=== PATIENT | female | born 1955 | race Caucasian/White ===

== ENCOUNTER 2021-09-11 07:56 | Outpatient (CLI) | payer MEDICARE, SELFPAY ==
--- NOTE | ~2021-09-11 | MM_ITS ---
EXAMINATION: MM screening refugio BI w shi HISTORY: Screening mammogram TECHNIQUE: Craniocaudal and mediolateral oblique 3-D tomosynthesis images were obtained and synthetic 2-D images were generated. CAD analysis was submitted and interpreted. COMPARISON: 01/22/2019 BREAST PARENCHYMAL COMPOSITION: There are scattered areas of fibroglandular density. FINDINGS: There is no suspicious mass, calcification, or architectural distortion to suggest malignan cy in either breast. There has been no suspicious interval change. IMPRESSION: 1. No mammographic evidence of malignancy. 2. Recommend routine screening mammography in one year. BI-RADS Category 1: Negative Reviewed, dictated and finalized at location A.
== END 2021-09-11 07:57 | disposition home or self-care (01) ==
LOC: ANHIMG 07:58
PROVIDERS: PCP Internal Medicine; Visit Provider Obstetrics & Gynecology
DX: Z12.31 Encounter for screening mammogram for malignant neoplasm of breast (principal)
CPT/HCPCS: 77063; 77067

== ENCOUNTER 2022-11-16 08:47 | Outpatient (CLI) | payer MEDICARE, SELFPAY ==
--- NOTE | ~2022-11-16 | MM_ITS ---
EXAMINATION: MM screening refugio BI w shi HISTORY: Screening TECHNIQUE: Craniocaudal and mediolateral oblique 3-D tomosynthesis images were obtained and synthetic 2-D images were generated. CAD analysis was submitted and interpreted. COMPARISON: Comparison to multiple prior studies sequentially, with oldest reviewed study dated 12/30. BREAST PARENCHYMAL COMPOSITION: Breast composed of scattered areas of fibroglandular density FINDINGS: There is a new mass in the lower outer quadrant of the left breast, middle third. The right breast is stable without evidence for malignancy. IMPRESSION: 1. New left breast mass, lower outer quadrant. 2. Additional mammographic views and possible breast ultrasound are recommended. BI-RADS Category 0: Incomplete: Needs additional imaging evaluation. Reviewed, dictated and finalized at location A. IMPRESSION: 1. New left breast mass, lower outer quadrant. 2. Additional mammographic views and possible breast ultrasound are recommended . BI-RADS Category 0: Incomplete: Needs additional imaging evaluation.
== END 2022-11-16 08:48 | disposition home or self-care (01) ==
LOC: ANHIMG 08:48
PROVIDERS: PCP Internal Medicine; Visit Provider Obstetrics & Gynecology
DX: Z12.31 Encounter for screening mammogram for malignant neoplasm of breast (principal)
CPT/HCPCS: 77063; 77067

== ENCOUNTER 2022-11-18 12:40 | Outpatient (CLI) | payer MEDICARE, SELFPAY ==
--- NOTE | ~2022-11-18 | MMUS_ITS ---
EXAMINATION: MM diagnostic refugio LT w shi, US breast LT limited HISTORY: Follow-up left breast mass TECHNIQUE: Additional 3-D tomosynthesis images of the left breast were performed and synthetic 2-D im ages were generated. CAD analysis was submitted and interpreted. High resolution Limited left breast ultrasound was performed. COMPARISON: 11/16/2022 BREAST PARENCHYMAL COMPOSITION: Breast composed of scattered areas of fibroglandular density FINDINGS: MAMMOGRAPHIC FINDINGS: There is a persistent low-density mass in the lower outer quadrant of the left breast posteriorly. Th ere are no suspicious calcifications or architectural distortion. ULTRASOUND: Limited left breast ultrasound: At 4:00, 6 cm from the nipple, there is a 9 mm cyst corresponding to the mass seen on mammography. At 7:00, 5 cm from the nipple, there is a 4 mm oval hypoechoic mass wit h low level internal echoes, most likely a benign complicated cyst, although short-term follow-up is recommended.. IMPRESSION: 1. Probable benign 4 mm left breast mass at 7:00, 5 cm from the nipple. 2. Recommend 6 month follow-up Limited left breast ultrasound BI-RADS category 3, probably benign findings. Reviewed, dictated and finalized at location A. IMPRESSION: 1. Probable benign 4 mm left breast mass at 7:00, 5 cm from the nipple. 2. Recommend 6 month follow-up Limited left breast ultrasound BI-RADS category 3, probably benign findings.
== END 2022-11-18 12:41 | disposition home or self-care (01) ==
PROVIDERS: PCP Internal Medicine; Visit Provider Obstetrics & Gynecology
DX: R92.8 Other abnormal and inconclusive findings on diagnostic imaging of breast (principal)
CPT/HCPCS: 76642; 77061; 77065; G0279

== ENCOUNTER 2023-06-14 10:42 | Outpatient (CLI) | payer MEDICARE, SELFPAY ==
--- NOTE | ~2023-06-14 | US_ITS ---
US breast LT limited INDICATION: Follow-up left breast mass TECHNIQUE: Dedicated Limited left breast ultrasound COMPARISON: 11/18/2022 FINDINGS: At 7:00, 5 cm from the nipple there is a 3 mm simple cyst. No suspicious masses to suggest malignancy. IMPRESSION: 1: No sonographic evidence for malignancy in the left breast. Benign finding. Routine yearly screening mammogram and regular clinical breast examination are recommended. BI-RADS CATEGORY 2 - BENIGN FINDINGS Reviewed, dictated and finalized at location B.
== END 2023-06-14 10:43 | disposition home or self-care (01) ==
PROVIDERS: PCP Internal Medicine; Visit Provider Obstetrics & Gynecology
DX: R92.8 Other abnormal and inconclusive findings on diagnostic imaging of breast (principal); N63.20 Unspecified lump in the left breast, unspecified quadrant
CPT/HCPCS: 76642

== ENCOUNTER 2024-11-14 09:47 | Emergency (ER) | payer MEDICARE, SELFPAY ==
--- OUTSIDE RECORDS SUMMARY | 2005-05-07 04:30 | XMS_ITS | Continuity of Care Document ---
Author Organization [facility] Address [id number] [place] [address] [address] [place] [address] Phone Care Team Providers Care Lockstitch Binder Name Role Phone Andino OD, Kirby Unavailable Unavailable Advance Directives Directive Yes / No Effective Date File Name No Information Encounters Encounter Description Practice Location Reason(s) For Visit Diagnoses Date Provider Providers Copied on Encounter [facility], [address], [place], [place], [id number], [place] tel:[phone] [facility] [place] No Information Mar-1 0-200 6 Andino OD Kirby. [address] [place] , [address], [place], [address], [place]. tel:[phone] Family History Family Member Type Diagnosis Age At Onset No Information Payers Payer name Insurance type Covered alliance party ID Authoriza tion(s) No Information Social History Type Description Quantity Date Captured Comments Sex Female Smoking Status No Information Chief Complaint And Reason For Visit No Information Reason For Referral Reason For Referral No Information History Of Present Illness Encounter Date Complaint History Of Prese nt Illness No Information Functional Status Date Functional Assessmen t No Information Instructions Date Instruction Additional Infor mation No Information Assessments Type Assessment Date No Information Patient Care Teams Name Effective Dates (start - stop) Status Members No Information
[2024-11-14] VITALS (17 sets, daily range): BP systolic 163–170; BP diastolic 82–94; PULSE 95–108; RESP 12–28; TEMP 36.8; O2SAT 91–98
--- NOTE | ~2024-11-14 | CT_ITS ---
CTA CHEST CLINICAL HISTORY: Chest Pain . COMPARISON: None TECHNIQUE: Helical CTA performed from thoracic inlet to upper abdomen IV contrast information not listed in PACS Coronal, sagittal reformats. Multiplanar MIPS CT images acquired with automatic exposure control for dose reduction DLP: 884 mGy-cm FINDINGS: Pulmonary arteries: No PE. Thoracic Aorta: No dissection or aneurysm. Heart/pericardium: Cardiomegaly. RV/LV ratio: Normal. Lungs/Pleura: Right basilar atelectasis from elevated hemidiaphragm. Tracheobronchial tree: Patent. Nodes: No enlarged nodes. Bones: No acute bony abnormality. Soft tissues: Unremarkable. Visualized upper abdomen: Hepatomegaly, with steatosis, suspect early cirrhosis. Cholecystectomy. Right hepatic artery replaced from SMA. IMPRESSION: 1. No PE or other acute cardiopulmonary findings. Reviewed, dictated and finalized at location R.
--- NOTE | 2024-11-14 09:48 | ECG_ITS ---
Test Date: 2024-11-14 10:06:00 Measurements Intervals [place] Rate: 103 P: 12 VT: 138 QRS: -24 QRSD: 90 T: 82 QT: 348 QTc: 457 Interpretive Statements SINUS TACHYCARDIA BORDERLINE LEFT AXIS DEVIATION [QRS AXIS < -20] LEFT VENTRICULAR HYPERTROPHY AND ST-T CHANGE [VOLTAGE CRITERIA PLUS ST/T ABNORMALITY] CONSISTENT WITH HYPERTROPHY VERSUS ISCHEMIA ABNORMAL ECG No previous ECG available for comparison Electronically Signed On 11-14-2024 13:05:43 CDT by Ck Potter M.D.
[2024-11-14 10:14] LABS: Hematocrit 41.0 % (37.0-47.0); Hemoglobin 12.8 g/dL (12.0-15.0); Immature Granulocyte Percent A 0.6 % (0-0.5); Lymphocytes Absolute Auto 2.09 K/mm3 (0.9-3.2); Mean Corpuscular HGB Conc 31.2 g/dl (32-36); Mean Corpuscular Hemoglobin 25.8 pg (26-34); Mean Corpuscular Volume 82.5 fl (80-100); Nucleated Red Blood Cells Absolute Auto 0.000 K/mm3 (0.0-0.012); Nucleated Red Blood Cells Perc 0.0 % (0.0-0.2); Platelet Count Result 315 k/mm3 (150-375); Red Blood Count 4.97 M/mm3 (4.2-5.4); White Blood Count 13.6 K/mm3 (4.5-10.0)
[2024-11-14 10:28] LABS: Alanine Aminotransferase 28 U/L (6-35); Albumin Level 4.5 g/dL (3.5-5.1); Alkaline Phosphatase 96 U/L (38-126); Anion Gap 10 mmol/L (4-12); Aspartate Amino Transferase 25 U/L (14-36); Bilirubin,Total 1.0 mg/dL (0.2-1.3); Blood Urea Nitrogen 11 mg/dL (7-17); Calcium 9.1 mg/dL (8.4-10.2); Carbon Dioxide 27 mmol/L (22-30); Chloride 102 mmol/L (98-107); Estimated CRCL calculation 66 ml/min; Estimated Glomerular Filt Rate > 60; Glucose 153 mg/dL (65-110); INR 1.1; Lipase 82 U/L (23-300); Partial Thromboplastin Time 27.3 Seconds (22.3-36.8); Potassium 3.4 mmol/L (3.4-5.0); Prothrombin Time 14.3 Seconds (11.1-14.7); Sodium 139 mmol/L (137-145); Total Protein 8.6 g/dL (6.3-8.2)
[2024-11-14 10:38] LABS: Troponin I < 0.012 ng/mL (0.000-0.034)
[2024-11-14] MEDS: ASPIRIN 81 MG CHEWABLE TABLET 324 MG PO (11:09)
[2024-11-14] MEDS: MORPHINE SULFATE (*CRX) 4 MG/ML INJ IV PUSH (11:11)
--- NOTE | 2024-11-14 12:37 | ED.CHESTPAIN ---
HPI - Chest Pain General Chief Complaint: Chest Pain Stated Complaint: chest pain Time Seen by Provider: 11/14/24 10:11 History of Present Illness HPI narrative: Patient is a 61-year-old female who presents ER with chest pain. Ongoing since yesterday evening. Persistent. Worse with deep breath. No nausea vomiting. No exertional component. Denies fevers or chills or sweats. No hemoptysis. No leg swelling or cramping. No history of [place]. mild nausea. Related Data Home Medications ?Medication ?Instructions ?Recorded ?Confirmed ?Last Taken ?Type ergocalciferol (vitamin D2) 1,250 1,250 mcg PO WEEKLY 07/30/21 08/20/24 Unknown History mcg (50,000 unit) capsule metformin 500 mg tablet 500 mg PO DAILY 08/16/22 08/20/24 Unknown History atorvastatin 10 mg tablet (Lipitor) 10 mg PO DAILY 08/20/24 08/20/24 Unknown History Allergies Allergy/AdvReac Type Severity Reaction Status Date / Time No Known Allergies Allergy Verified 08/20/24 09:54 Review of Systems Review of Systems: All systems reviewed & are unremarkable except as noted in HPI and below Constitutional: Constitutional: Reports no additional constitutional complaints ENT: Reports system reviewed and no additional complaints, except as documented Cardiovascular: Cardiovascular: Reports no additional cardiovascular complaints Respiratory: Respiratory: Reports no additional respiratory complaints Gastrointestinal: Gastrointestinal: Reports no additional gastrointestinal complaints Genitourinary: Genitourinary: Reports no additional female genitourinary complaints [facility] Past Medical History Medical History Left breast mass History of prediabetes (~2022) rx meds Screening mammogram, encounter for Colostomy hernia 1998 reversal 3 months later Anemia 1993 blood transfusion after c/s Surgical History Surgical History History of bladder surgery bladder sling History of orthopedic surgery 1990 andra in lt leg History of 1988 1993 Family History Family History Father Heart disease Hypertension Osteoporosis Leukemia Mother Lung cancer Uterine cancer Social History Social History (Updated 08/20/24 @ 09:56 by Helga Amato CMA) Smoking status: Never smoker Alcohol intake: never Substance use: never Substance use type: does not use Do You Feel Safe in your Home?: Yes Lack of Transportation: No Lack of Food: Never True Current Housing: I Have Housing Concerned About Future Housing: No Difficulty Paying Gas/Electric Bills: No Difficulty Paying for Meds: No Currently Unemployed: No Education: High School Diploma/GED Difficulty w/ Childcare or Family Care: No Living arrangements: other Additional living arrangements comments: Occupation/Education: retired Gender identity (if verbalized by the patient): Female Sexual Orientation (if Verbalized by the Patient): Straight or Heterosexual Exam Narrative: GENERAL: Well-appearing, well-nourished, and in no acute distress. HEAD: Normocephalic, atraumatic. ENT: Mucous membranes moist. CHEST: Clear to auscultation. No respiratory distress. HEART: Regular rate and rhythm. Normal peripheral pulses. ABDOMEN: Soft, nontender, nondistended. EXTREMITIES: Normal range of motion. No edema. SKIN: Warm, dry, no rash. NEURO: Alert and oriented x3. PSYCH: Normal mood and affect. Course Course Emergency Course: Patient resting comfortably. Pain resolved after fentanyl 25 mcg. Zofran given for nausea. Mild leukocytosis. Normal CMP. CTA of the chest without PE or pneumonia. Troponin negative. Patient felt to have pleurisy. Vital Signs Vital signs: Vital Signs Temperature 98.3 F 11/14/24 09:57 Pulse Rate 99 11/14/24 09:57 Respiratory Rate 20 11/14/24 09:57 Blood Pressure 167/82 H 11/14/24 09:57 Pulse Oximetry 97 11/14/24 09:57 Oxygen Delivery Room Air 11/14/24 09:57 Temperature 98.3 F 11/14/24 09:57 Pulse Rate 102 H 11/14/24 10:01 Respiratory Rate 23 H 11/14/24 10:01 Blood Pressure 167/82 H 11/14/24 10:01 Pulse Oximetry 98 11/14/24 10:01 Oxygen Delivery Room Air 11/14/24 09:57 MDM - Chest Pain Lab Data 11/14/24 10:07 11/14/24 10:07 Labs: Lab Results 11/14/24 Range/Units 10:07 WBC 13.6 H (4.5-10.0) K/mm3 RBC 4.97 (4.2-5.4) M/mm3 Hgb 12.8 (12.0-15.0) g/dL Hct 41.0 (37.0-47.0) % MCV 82.5 (80-100) fl MCH 25.8 L (26-34) pg MCHC 31.2 L (32-36) g/dl RDW 14.6 H (11.5-14.5) % Plt Count 315 (150-375) k/mm3 MPV 9.4 (7.4-10.4) fl Immature Gran % (Auto) 0.6 H (0-0.5) % Neut % (Auto) 76.6 H (45.5-73.1) % Lymph % (Auto) 15.3 L (18.3-44.2) % [place] % (Auto) 6.7 (2.6-8.5) % Eos % (Auto) 0.3 (0-4.4) % Baso % (Auto) 0.5 (0.2-1.2) % Lymph # (Auto) 2.09 (0.9-3.2) K/mm3 [place] # (Auto) 0.9 H (0.1-0.6) K/mm3 Eos # (Auto) 0.0 (0-0.3) K/mm3 Baso # (Auto) 0.1 (0.0-0.1) K/mm3 Abs Immat Gran (auto) 0.08 H (0.00-0.031) K/mm3 Absolute Neuts (auto) 10.5 H (1.3-6.7) K/mm3 Absolute Nucleated RBC 0.000 (0.0-0.012) K/mm3 Nucleated RBC % 0.0 (0.0-0.2) % PT 14.3 (11.1-14.7) Seconds INR 1.1 APTT 27.3 (22.3-36.8) Seconds Sodium 139 (137-145) mmol/L Potassium 3.4 (3.4-5.0) mmol/L Chloride 102 (98-107) mmol/L Carbon Dioxide 27 (22-30) mmol/L Anion Gap 10 (4-12) mmol/L BUN 11 (7-17) mg/dL Creatinine 0.84 (0.7-1.0) mg/dL Estim Creat Clear Calc 66 ml/min Estimated GFR > 60 (59 - ) Glucose 153 H (65-110) mg/dL Calcium 9.1 (8.4-10.2) mg/dL Total Bilirubin 1.0 (0.2-1.3) mg/dL AST 25 (14-36) U/L ALT 28 (6-35) U/L Alkaline Phosphatase 96 (38-126) U/L Troponin I < 0.012 (0.000-0.034) ng/mL Total Protein 8.6 H (6.3-8.2) g/dL Albumin 4.5 (3.5-5.1) g/dL Lipase 82 (23-300) U/L Imaging Data Radiologist's impression: ITS Impressions Chest CTA 11/14/24 10:48 IMPRESSION: 1. No PE or other acute cardiopulmonary findings. ECG Data EKG #1: ECG completion date: 11/14/24 ECG completion time: 10:06 EKG Interpretation: tachycardia (103), sinus rhythm, no ST changes, normal QRS and normal QT Discharge Plan Discharge Clinical Impression: Pleurisy Patient Disposition: Home Condition: Stable Instructions: Pleurisy (ED) Additional Instructions: Please return to the emergency department if you develop severe and persistent chest pain, difficulty breathing, dizziness, leg swelling or if you are coughing up blood as these can be signs of a medical emergency. Please call your doctor for a follow up appointment to determine the need for further testing. Patient Language: Syriac Prescriptions: New pantoprazole 20 mg tablet,delayed release (DR/EC) 20 mg PO HS 28 Days Qty: 28 0RF naproxen 375 mg tablet 375 mg PO BID Qty: 14 0RF No Action metformin 500 mg tablet 500 mg PO DAILY oxybutynin chloride 10 mg tablet extended release 24hr 10 mg PO DAILY Qty: 90 3RF ergocalciferol (vitamin D2) 1,250 mcg (50,000 unit) capsule 1,250 mcg PO WEEKLY atorvastatin [Lipitor] 10 mg tablet 10 mg PO DAILY Follow-up/Referrals: Sebastian,MD Wade [Primary Care Provider] - 1 Week
== END 2024-11-14 13:09 | disposition home or self-care (01) ==
PROVIDERS: Emergency Provider Emergency Medicine; PCP Internal Medicine
DX: R09.1 Pleurisy (principal)
CPT/HCPCS: 36415; 71275; 80053; 83690; 84484; 85025; 85610; 85730; 93005; 96374; 99284; A9270; J2270; Q9967

== ENCOUNTER 2025-01-22 09:49 | Outpatient (CLI) | payer MEDICARE, SELFPAY ==
--- NOTE | ~2025-01-22 | MM_ITS ---
EXAMINATION: MM screening [facility] BI w shi HISTORY: Screening TECHNIQUE: Craniocaudal and mediolateral oblique 3-D tomosynthesis images were obtained and synthetic 2-D images were generated. CAD analysis was submitted and interpreted. COMPARISON: Comparison to multiple prior studies sequentially, with oldest reviewed study dated 09/11/2021. BREAST PARENCHYMAL COMPOSITION: Not dense: There are scattered areas of fibroglandular density. FINDINGS: There are developing bilateral breast masses laterally in the right breast and scattered throughout the left breast. There are no suspicious calcifications or architectural distortion. IMPRESSION: 1. Developing bilateral breast masses. 2. Additional mammographic views and possible breast ultrasound are recommended. BI-RADS Category 0: Incomplete: Needs additional imaging evaluation. Reviewed, dictated and finalized at location O. IAL PROCEDURES NURSE IMPRESSION: 1. Developing bilateral breast masses. 2. Additional mammographic views and possible breast ultrasound are recommended . BI-RADS Category 0: Incomplete: Needs additional imaging evaluation.
== END 2025-01-22 09:50 | disposition home or self-care (01) ==
LOC: ANHFOHIMG 09:50
PROVIDERS: PCP Internal Medicine; Visit Provider Obstetrics & Gynecology
DX: Z12.31 Encounter for screening mammogram for malignant neoplasm of breast (principal); N63.20 Unspecified lump in the left breast, unspecified quadrant; N63.10 Unspecified lump in the right breast, unspecified quadrant; R92.8 Other abnormal and inconclusive findings on diagnostic imaging of breast
CPT/HCPCS: 77063; 77067

== ENCOUNTER 2025-02-13 10:47 | Outpatient (CLI) | payer MEDICARE, SELFPAY ==
--- NOTE | ~2025-02-13 | MM_ITS ---
EXAMINATION: MM diagnostic refugio BI w shi INDICATION: 69-year old female; BI-RADS 0, callback to evaluate Both breasts masses. COMPARISON: 01/22/2025 through 01/22/2019. TECHNIQUE: Digital breast tomosynthesis True lateral view and spot compression CC and MLO views of Both breasts were obtained. FINDINGS: There are scattered areas of fibroglandular density. The masses seen in Both breasts on the screening mammogram partially persists on spot compression views, however this findings are unchanged dating back to the study of 01/22/2019. This findings are therefore considered benign. IMPRESSION: Stable benign mammogram. No mammographic evidence of malignancy in either breast. RECOMMENDATION: Annual screening mammography in 12 months BI-RADS 2, BENIGN Reviewed, dictated and finalized at location A. A/C TECHNICIAN IMPRESSION: Stable benign mammogram. No mammographic evidence of malignancy in either breas t. RECOMMENDATION: Annual screening mammography in 12 months BI-RADS 2, BENIGN
--- OUTSIDE RECORDS SUMMARY | 2025-02-13 12:54 | XMS_ITS | Data Portability ---
Author Organization [place] - [facility], Main Office Address [address] [place] [address] Assessment Encounter Date Assessment Date Assessment LastModified by Organization Details LastModified Time 05/10/2022 05/10/2022 Obtain blood wor k Caloric restriction for weight loss Follow-up 6 months Vitamin-D supplementation [email or web address] Not available 05/15/2022 22:15:57 11/15/2022 11/15/2022 Weight loss watc h sweets continue current therapy Tessalon Perles for week for cough lungs are clear if not improved in a few weeks she will let me know otherwise see me in 6 month [id number] Not available 12/12/2022 14:36:03 Plan of Treatment Reminders Order Date Submit Date Provider Last Modified By Organization Details Last Modified Time Details Appointments None recorded. Lab CBC w/ auto diff [address] (Lab), [address] [place], [address], 3 16:52:12 lipid panel, serum [address] (Lab), [address] [place], [address], 3 16:52:12 CMP, serum or plasma [address] (Lab), [address] [place], [address], 3 16:52:12 glycohemogl obin, total, blood [address] (Lab), [address] [place], [address], 3 16:52:12 glycohemogl obin, total, blood 2022 023 NATASHA [facility] (Lab), [address] [place], [address], 3 17:12:50 lipid panel, serum [address] (Lab), [address] [place], [address], 3 15:59:08 CMP, serum or plasma [address] (Lab), [address] [place], [address], 3 15:59:08 Referral None recorded. Procedures None recorded. Surgeries None recorded. Imaging None recorded. Medication Orders benzonatate 200 mg capsule [address]/Pharmacy #[id number], [address] [facility] [place], [address], 3 14:34:10 ergocalcife rol (vitamin D2) 1,250 mcg (50,000 unit) capsule [address]/Pharmacy #[id number], [address] , [place], [address], 3 22:14:34 Patient TargetsNo targets recorded. Patient InstructionsNo instructions recorded. Reason for Referral None Reported. Results Created Date Observation Date Name Description Value Unit Range Abnormal Flag Note LastModifiedBy Organization Detail LastModifiedTime 09/03/19 21 09/04/2020 AP/A NTINU CLEAR ANTIB ODIES ,IFA antinuclear antibodies, ifa negati ve Negat deep <1:80 Borde rline 1:80 Posit deep >1:80 Perfo rmed at: [facility] - [facility] [address] [facility], [place] [address] Lab Direc tor: Deshaun ambriz PhD, Phone : [phone] Not Available [facility] (Lab) [address] [place], [address], 09/04/2020 09:13:32 09/03/19 21 09/02/2020 C REACT DEEP PROTE IN,UL TRA SENS C-reactive protein 1.66 mg/dL 0.0-0. 5 high Not Available [facility] (Lab) [address] [place], [address], 09/02/2020 16:43:52 09/03/19 21 09/02/2020 RHEUM ATOID FACTO R rf <8.6 IU/mL 0.0-11 .9 Not Available [facility] (Lab) [address] [place], [address], 09/02/2020 16:43:49 09/03/19 21 09/02/2020 TSH thyroid-stim ulating hormone 1.160 uIU/m L 0.465- 4.680 Not Available [facility] (Lab) [address] [place], [address], 09/02/2020 16:28:47 09/03/19 21 09/02/2020 T3 FREE free T3 3.6 pg/mL 2.77-5 .27 Not Available [facility] (Lab) [address] [place], [address], 09/02/2020 16:21:11 09/03/19 21 09/02/2020 T4 FREE free T4 1.19 NG/dL 0.78-2 .19 Not Available [facility] (Lab) [address] [place], [address], 09/02/2020 16:21:09 09/03/19 21 09/02/2020 LIPID PANEL cholesterol 213 mg/dL 140-19 9 high NIH CHRISTIANO NSUS RECOM MENDA TION FOR JOSH STERO L: ADULT CHILD LOW RISK: <200 <170 BORDE RLINE : <200- 239 ----- HIGH RISK: >240 >200 Not Available [facility] (Lab) [address] [place], [address], 09/02/2020 15:50:52 09/03/19 21 09/02/2020 LIPID PANEL triglyceride s 212 mg/dL 0-150 high NIH CHRISTIANO NSUS REPOR T RECOM MENDA TION FOR TRIGL YCERI NAKUL: ADULT CHILD LOW RISK: <150 ----- BODER LINE: 150-1 99 ----- HIGH RISK: >200 ----- Not Available [facility] (Lab) [address] [place], [address], 09/02/2020 15:50:52 09/03/19 21 09/02/2020 LIPID PANEL HDL cholesterol 51 mg/dL 40- Not Available [facility] (Lab) [address] [place], [address], 09/02/2020 15:50:52 09/03/19 21 09/02/2020 LIPID PANEL LDL cholesterol, calculated 120 mg/dL 0-130 NIH CHRISTIANO NSUS REPOR T RECOM MENDA TIONS FOR LDL: ADULT CHILD LOW RISK <130 <110 (OPTI MAL LDL) <100 ----- BORDE RLINE : 130-1 59 ----- HIGH RISK: >160 >130 A TRIGL YCERI DE RESUL T >400 INVAL IDATE S THE CALCU LATIO N FOR LDL FRACT IONAT ION - THE LDL RESUL T WILL NOT BE REPOR JETHRO. Not Available [facility] (Lab) [address] [place], [address], 09/02/2020 15:50:52 09/03/19 21 09/02/2020 COMPR EHENS DEEP METAB OLIC PANEL sodium 139 mmol/ L 137-14 5 Not Available [facility] (Lab) [address] [place], [address], 09/02/2020 15:50:46 09/03/19 21 09/02/2020 COMPR EHENS DEEP METAB OLIC PANEL potassium 4.1 mmol/ L 3.5-5. 1 Not Available [facility] (Lab) [address] [facility] [place], [address], 09/02/2020 15:50:46 09/03/19 21 09/02/2020 COMPR EHENS DEEP METAB OLIC PANEL chloride 102 mmol/ L 98-107 Not Available [facility] (Lab) [address] [facility] [place], [address], 09/02/2020 15:50:46 09/03/19 21 09/02/2020 COMPR EHENS DEEP METAB OLIC PANEL carbon dioxide 30 mmol/ L 22-30 Not Available [facility] (Lab) [address] [place], [address], 09/02/2020 15:50:46 09/03/19 21 09/02/2020 COMPR EHENS DEEP METAB OLIC PANEL agap 11.1 mmol/ L 14-22 low Not Available [facility] (Lab) [address] [place], [address], 09/02/2020 15:50:46 09/03/19 21 09/02/2020 COMPR EHENS DEEP METAB OLIC PANEL glucose 164 mg/dL 70-99 high Not Available [facility] (Lab) [address] [facility] [place], [address], 09/02/2020 15:50:46 09/03/19 21 09/02/2020 COMPR EHENS DEEP METAB OLIC PANEL BUN 10 mg/dL 8-19 Not Available [facility] (Lab) [address] [place], [address], 09/02/2020 15:50:46 09/03/19 21 09/02/2020 COMPR EHENS DEEP METAB OLIC PANEL creatinine 0.67 mg/dL 0.66-1 .25 Not Available [facility] (Lab) [address] [place], [address], 09/02/2020 15:50:46 09/03/19 21 09/02/2020 COMPR EHENS DEEP METAB OLIC PANEL GFR >60 Refer ence Range : [place] ge GFR Healt hy Adult : >60 mL/mi n/1.7 3 m2 Chron ic Kidne y Disea se: 15-60 mL/mi n/1.7 3 m2 Kidne y Failu re: <15/m L/min /1.73 m2 www.n iddk. nih.g ov MDRD study equat ion hasn' t been valid ated in child junior <18 yrs of age, pregn ant women , the elder ly >85 yrs of age, or in some racia l or ethni c subgr oups, suc as Hispa nics. Outsi de the valid ated sona eters , estim ated GFR is less accur ate requi ring clini rita judgm ent on a case by case basis . Clini rita inter preta tion for other races and ages must be made by the clini zully . Futhe rmore , any of th e limit ation s with the use of serum creat inine relat ed to nutri yuval l statu s o r medic ation usage hasn' t accou nted for the MDRD Study equat ion. For perso ns < 18 yrs of age, a pedia tric GFR calcu lator can be locat ed on the [facility] websi te: https ://jose w.kid suresh.o rg/pr ofess ional s/kdo qi/gf r_cal culat or Not Available [facility] (Lab) [address] [place], [address], 09/02/2020 15:50:46 09/03/19 21 09/02/2020 COMPR EHENS DEEP METAB OLIC PANEL alkaline phosphatase 92 U/L 38-126 Not Available [facility] (Lab) [address] [facility] [place], [address], 09/02/2020 15:50:46 09/03/19 21 09/02/2020 COMPR EHENS DEEP METAB OLIC PANEL alanine aminotransfe rase 25 U/L 0-35 Not Available [facility] (Lab) [address] [place], [address], 09/02/2020 15:50:46 09/03/19 21 09/02/2020 COMPR EHENS DEEP METAB OLIC PANEL aspartate aminotransfe rase 24 U/L 15-37 Not Available [facility] (Lab) [address] [facility] [place], [address], 09/02/2020 15:50:46 09/03/19 21 09/02/2020 COMPR EHENS DEEP METAB OLIC PANEL bilirubin, total 0.50 mg/dL 0.20-1 .30 Not Available [facility] (Lab) [address] [place], [address], 09/02/2020 15:50:46 09/03/19 21 09/02/2020 COMPR EHENS DEEP METAB OLIC PANEL calcium 8.8 mg/dL 8.4-10 .2 Not Available [facility] (Lab) [address] [place], [address], 09/02/2020 15:50:46 09/03/19 21 09/02/2020 COMPR EHENS DEEP METAB OLIC PANEL total protein 7.1 g/dL 6.3-8. 2 Not Available [facility] (Lab) [address] [place], [address], 09/02/2020 15:50:46 09/03/19 21 09/02/2020 COMPR EHENS DEEP METAB OLIC PANEL albumin 4.1 g/dL 3.0-4. 4 Not Available [facility] (Lab) [address] [place], [address], 09/02/2020 15:50:46 09/03/19 21 09/02/2020 COMPR EHENS DEEP METAB OLIC PANEL globulin 3.0 g/dL 2.6-4. 2 Not Available [facility] (Lab) [address] [place], [address], 09/02/2020 15:50:46 09/03/19 21 09/02/2020 COMPR EHENS DEEP METAB OLIC PANEL A/G ratio 1.4 ratio 1.0-2. 0 Not Available [facility] (Lab) [address] [place], [address], 09/02/2020 15:50:46 09/03/19 21 09/02/2020 SEDIM ENTAT ION RATE erythrocyte sedimentatio n rate 45 mm/HR 0-20 high Not Available [facility] (Lab) [address] [place], [address], 09/02/2020 15:45:23 09/03/19 21 09/02/2020 URINE MICRO SCOPI C EXAM/ IRIS white blood cells >100 /i??h pfi?? 0-8 abnormal Not Available [facility] (Lab) [address] [place], [address], 09/02/2020 15:42:09 09/03/19 21 09/02/2020 URINE MICRO SCOPI C EXAM/ IRIS red blood cells none /i??h pfi?? 0-4 Not Available [facility] (Lab) [address] [place], [address], 09/02/2020 15:42:09 09/03/19 21 09/02/2020 URINE MICRO SCOPI C EXAM/ IRIS bacteria modera te abnormal Not Available [facility] (Lab) [address] [place], [address], 09/02/2020 15:42:09 09/03/19 21 09/02/2020 URINE MICRO SCOPI C EXAM/ IRIS mucous occasi onal /i??l pfi?? abnormal Not Available [facility] (Lab) [address] [place], [address], 09/02/2020 15:42:09 09/03/19 21 09/02/2020 URINE MICRO SCOPI C EXAM/ IRIS squamous epithelial few /i??l pfi?? abnormal Not Available [facility] (Lab) [address] [place], [address], 09/02/2020 15:42:09 09/03/19 21 09/02/2020 URINE MICRO SCOPI C EXAM/ IRIS renal epithelial few /i??l pfi?? abnormal Not Available [facility] (Lab) [address] [place], [address], 09/02/2020 15:42:09 09/03/19 21 09/02/2020 URINE MICRO SCOPI C EXAM/ IRIS budding yeast few /i??h pfi?? abnormal Not Available [facility] (Lab) [address] [place], [address], 09/02/2020 15:42:09 09/03/19 21 09/02/2020 CBC/C OMPLE TE BLD COUNT W/DIF F white blood cells 8.4 x10'3 /uL 4.2-10 .8 Not Available [facility] (Lab) [address] [place], [address], 09/02/2020 15:14:33 09/03/19 21 09/02/2020 CBC/C OMPLE TE BLD COUNT W/DIF F red blood cells 4.80 x10'6 /uL 3.80-5 .20 Not Available [facility] (Lab) [address] [place], [address], 09/02/2020 15:14:33 09/03/19 21 09/02/2020 CBC/C OMPLE TE BLD COUNT W/DIF F hemoglobin 12.4 g/dL 12.0-1 5.6 Not Available [facility] (Lab) [address] [place], [address], 09/02/2020 15:14:33 09/03/19 21 09/02/2020 CBC/C OMPLE TE BLD COUNT W/DIF F hematocrit 39.7 % 35.7-4 5.7 Not Available [facility] (Lab) [address] [place], [address], 09/02/2020 15:14:33 09/03/19 21 09/02/2020 CBC/C OMPLE TE BLD COUNT W/DIF F mean red cell volume 82.7 fL 82.0-9 9.0 Not Available [facility] (Lab) [address] [place], [address], 09/02/2020 15:14:33 09/03/19 21 09/02/2020 CBC/C OMPLE TE BLD COUNT W/DIF F mean red cell hemoglobin 25.8 pg 27.0-3 3.0 low Not Available [facility] (Lab) [address] [place], [address], 09/02/2020 15:14:33 09/03/19 21 09/02/2020 CBC/C OMPLE TE BLD COUNT W/DIF F mean RBC HGB concentratio n 31.2 g/dL 31.0-3 6.0 Not Available [facility] (Lab) [address] [place], [address], 09/02/2020 15:14:33 09/03/19 21 09/02/2020 CBC/C OMPLE TE BLD COUNT W/DIF F red cell distribution width 14.1 % 11.8-1 5.5 Not Available [facility] (Lab) [address] [place], [address], 09/02/2020 15:14:33 09/03/19 21 09/02/2020 CBC/C OMPLE TE BLD COUNT W/DIF F platelets 292 x10'3 /uL 150-40 0 Not Available [facility] (Lab) [address] [facility] [place], [address], 09/02/2020 15:14:33 09/03/19 21 09/02/2020 CBC/C OMPLE TE BLD COUNT W/DIF F mean platelet volume 10.0 fL 9.0-12 .4 Not Available [facility] (Lab) [address] [place], [address], 09/02/2020 15:14:33 09/03/19 21 09/02/2020 CBC/C OMPLE TE BLD COUNT W/DIF F neutrophils 63.6 % 39.0-7 2.0 Not Available [facility] (Lab) [address] [place], [address], 09/02/2020 15:14:33 09/03/19 21 09/02/2020 CBC/C OMPLE TE BLD COUNT W/DIF F lymphocytes 29.3 % 16.0-4 7.0 Not Available [facility] (Lab) [address] [place], [address], 09/02/2020 15:14:33 09/03/19 21 09/02/2020 CBC/C OMPLE TE BLD COUNT W/DIF F monocytes 3.8 % 5.0-12 .0 low Not Available [facility] (Lab) [address] [place], [address], 09/02/2020 15:14:33 09/03/19 21 09/02/2020 CBC/C OMPLE TE BLD COUNT W/DIF F eosinophils 2.1 % 1.0-7. 0 Not Available [facility] (Lab) [address] [place], [address], 09/02/2020 15:14:33 09/03/19 21 09/02/2020 CBC/C OMPLE TE BLD COUNT W/DIF F basophils 0.6 % 0.0-2. 0 Not Available [facility] (Lab) [address] [place], [address], 09/02/2020 15:14:33 09/03/19 21 09/02/2020 CBC/C OMPLE TE BLD COUNT W/DIF F immature granulocytes 0.6 % 0.00-0 .50 high Not Available [facility] (Lab) [address] [place], [address], 09/02/2020 15:14:33 09/03/19 21 09/02/2020 CBC/C OMPLE TE BLD COUNT W/DIF F neutrophils, absolute count 5.35 x10'3 /uL 1.5-8. 0 Not Available [facility] (Lab) [address] [place], [address], 09/02/2020 15:14:33 09/03/19 21 09/02/2020 CBC/C OMPLE TE BLD COUNT W/DIF F lymphocytes, absolute count 2.46 x10'3 /uL 1.07-3 .43 Not Available [facility] (Lab) [address] [place], [address], 09/02/2020 15:14:33 09/03/19 21 09/02/2020 CBC/C OMPLE TE BLD COUNT W/DIF F monocytes, absolute count 0.32 x10'3 /uL 0.29-0 .99 Not Available [facility] (Lab) [address] [place], [address], 09/02/2020 15:14:33 09/03/19 21 09/02/2020 CBC/C OMPLE TE BLD COUNT W/DIF F eosinophils, absolute count 0.18 x10'3 /uL 0.02-0 .53 Not Available [facility] (Lab) [address] [place], [address], 09/02/2020 15:14:33 09/03/19 21 09/02/2020 CBC/C OMPLE TE BLD COUNT W/DIF F basophils, absolute count 0.05 x10'3 /uL 0.01-0 .08 Not Available [facility] (Lab) [address] [place], [address], 09/02/2020 15:14:33 09/03/19 21 09/02/2020 CBC/C OMPLE TE BLD COUNT W/DIF F immature granulocytes ,absolute 0.05 x10'3 /uL 0.00-0 .05 Not Available [facility] (Lab) [address] [place], [address], 09/02/2020 15:14:33 09/03/19 21 09/02/2020 CBC/C OMPLE TE BLD COUNT W/DIF F nucleated red blood cells 0.0 % -0 Not Available [facility] (Lab) [address] [place], [address], 09/02/2020 15:14:33 09/03/19 21 09/02/2020 CBC/C OMPLE TE BLD COUNT W/DIF F NRBC# 0.00 x10'3 /uL Not Available [facility] (Lab) [address] [place], [address], 09/02/2020 15:14:33 09/13/19 21 09/12/2020 SARS- COV-2 (COVI D-19) ANTIG EN sars-cov-2 (covid-19) antigen non-re active non-re active This test has been autho rized by the FDA under an Emerg ency Use Autho rizat ion (EUA) for use by autho rized labor atori es. This test is only for the detec tion of SARS- CoV-2 antig en, not for any other virus es or patho gens. Negat deep resul ts from patie nts with sympt om onset outsi de of one to six days shoul d be treat ed as presu mptiv e. Negat deep resul ts do not rule out SARS- CoV-2 infec tion and shoul d not be used as the sole basis of treat ment or patie nt manag ement decis ions, inclu ding infec tion contr ol decis ions. Negat deep resul ts shoul d be consi dered in the caprcie xt of a patie nt's recen t expos ures, histo ry and the prese nce of clini rita signs and sympt oms consi stent with COVID -19. The VITRO S Immun odiag nosti cs Produ cts SARS- CoV-2 Antig en Lette r of Autho rizat ion, along with the autho rized Fact Sheet for Healt hcare Provi ders, the autho rized Fact Sheet for Recip ients , and autho rized label ing are avail able on the FDA Websi te: https ://ww w.fda .gov/ medic al-de vices /latoya navir us-di sease -2019 -covi d-19- emerg ency- use-a uthor izati ons-m edica l-dev ices/ vitro -diag nosti cs-eu as# indiv idual -sero logic al Not Available [facility] (Lab) [address] [place], [address], 09/12/2020 18:14:55 09/13/19 21 09/12/2020 SARS- COV-2 (COVI D-19) ANTIG EN signal to cutoff ratio 0.25 0.00-0 .99 Not Available [facility] (Lab) [address] [place], [address], 09/12/2020 18:14:55 09/17/19 21 09/16/2020 COLOG UARD cologuard result reportable positi ve negati ve abnormal POSIT DEEP TEST RESUL T. A posit deep Colog uard resul t shoul d be follo wed with a colon oscop y or visua l exami natio n of the colon . The casa l value (refe rence range ) for this assay is negat deep. TEST DESCR IPTIO N: [place] site algor ithmi c treva sis of stool DNA-b soni barrios with hemog lobin immun oassa y. Quant itati ve value s of indiv idual bioma rkers are not repor table and are not assoc iated with indiv idual bioma rker resul t refer ence range s. Colog uard is inten ded for color ectal cance r scree [place] of adult s of eithe r sex, 45 years or older , who are at [facility] for color ectal cance r (CRC) . Colog uard has been appro erika for use by the [place] FDA. The perfo rmanc e of Colog uard was estab lishe d in a cross secti onal study of [facility] adult s aged 50-84 . Colog uard perfo rmanc e in patie nts ages 45 to 49 years was estim ated by sub-g roup treva sis of near- age group s. Colon oscop ies perfo rmed for a posit deep resul t may find as the most clini shalini signi ficryan t lesio n: color ectal cance r [4.0% ], advan melody adeno ma (incl uding sessi le kumar jethro polyp s great er than or equal to 1cm diame ter) [20%] or non- advan melody adeno ma [31%] ; or no color ectal neopl chanelle [45%] . These estim ates are deriv ed from a prosp ectiv e cross -sect ional scree [place] study of ,00 0 indiv idual s at [facility] risk for color ectal cance r who were scree [place] with both Colog uard and colon oscop y. (Russel [place] al, N Engl J Med 2014; 370(1 4):12 86-12 97.) Colog uard may produ ce a false negat deep or false posit deep resul t (no color ectal cance r or preca ncero us polyp prese nt at colon oscop y follo w up). A negat deep Colog uard test resul t does not guara ntee the absen ce of CRC or advan melody adeno ma (pre- cance r). The curre nt Colog uard scree [place] inter thaddeus is every 3 years . (Amjorge a ican Cance r Socie ty and U.S. Multi -Soci ety Task Force ). Colog uard perfo rmanc e data in a 10,00 0 patie nt pivot al study using colon oscop y as the refer ence metho d can be acces sed at the follo wing locat ion: www.e xactl abs.c om/re sults . Addit ional descr iptio n of the Colog uard test proce ss, warni ngs and preca ution s can be found at www.c ologu ethan.c om. Not Available [facility] [address], [place], [address], 09/21/2020 09:32:18 11/22/19 21 11/21/2020 VITAM IN D 25-HY DROXY vd25oh 17.1 NG/mL 30-100 low Vitam in D Statu s: Defic ient: <20 ng/mL Insuf ficie nt: 20-29 ng/mL Suffi cient : 30-10 0 ng/mL Not Available [facility] (Lab) [address] [place], [address], 11/21/2020 17:54:01 07/04/19 22 07/03/2021 TSH thyroid-stim ulating hormone 1.330 uIU/m L 0.465- 4.680 Not Available [facility] (Lab) [address] [place], [address], 07/03/2021 15:31:46 07/04/19 22 07/03/2021 HEMOG LOBIN A1C HA1C 6.1 % 4.0-6. 0 high Diabe sara Scree [place] Crite mel: <5.7% Consi stent with absen ce of diabe sara 5.7-6 .4% Consi stent with incre ased risk for diabe sara (pred iabet es) >OR=6 .5% Consi stent with diabe sara REFER ENCE: Diabe sara Care 2016, 39(Ro ppl.1 ):s13 -s22 Not Available [facility] (Lab) [address] [place], [address], 07/03/2021 15:01:52 07/04/19 22 07/03/2021 T3 FREE free T3 3.7 pg/mL 2.77-5 .27 Not Available [facility] (Lab) [address] [place], [address], 07/03/2021 14:57:53 07/04/19 22 07/03/2021 T4 FREE free T4 1.45 NG/dL 0.78-2 .19 Not Available [facility] (Lab) [address] [place], [address], 07/03/2021 14:57:48 07/04/19 22 07/03/2021 COMPR EHENS DEEP METAB OLIC PANEL sodium 138 mmol/ L 137-14 5 Not Available [facility] (Lab) [address] [place], [address], 07/03/2021 14:46:25 07/04/19 22 07/03/2021 COMPR EHENS DEEP METAB OLIC PANEL potassium 4.1 mmol/ L 3.5-5. 1 Not Available [facility] (Lab) [address] [place], [address], 07/03/2021 14:46:25 07/04/19 22 07/03/2021 COMPR EHENS DEEP METAB OLIC PANEL chloride 104 mmol/ L 98-107 Not Available [facility] (Lab) [address] [place], [address], 07/03/2021 14:46:25 07/04/19 22 07/03/2021 COMPR EHENS DEEP METAB OLIC PANEL carbon dioxide 28 mmol/ L 22-30 Not Available [facility] (Lab) [address] [place], [address], 07/03/2021 14:46:25 07/04/19 22 07/03/2021 COMPR EHENS DEEP METAB OLIC PANEL anion gap 10.1 mmol/ L 14-22 low Not Available [facility] (Lab) [address] [place], [address], 07/03/2021 14:46:25 07/04/19 22 07/03/2021 COMPR EHENS DEEP METAB OLIC PANEL glucose 124 mg/dL 70-99 high Not Available [facility] (Lab) [address] [place], [address], 07/03/2021 14:46:25 07/04/19 22 07/03/2021 COMPR EHENS DEEP METAB OLIC PANEL BUN 14 mg/dL 8-19 Not Available [facility] (Lab) [address] [place], [address], 07/03/2021 14:46:25 07/04/19 22 07/03/2021 COMPR EHENS DEEP METAB OLIC PANEL creatinine 0.82 mg/dL 0.66-1 .25 Not Available [facility] (Lab) [address] [place], [address], 07/03/2021 14:46:25 07/04/19 22 07/03/2021 COMPR EHENS DEEP METAB OLIC PANEL GFR >60 Refer ence Range : [place] GFR Healt hy Adult : >60 mL/mi n/1.7 3 m2 Chron ic Kidne y Disea se: 15-60 mL/mi n/1.7 3 m2 Kidne y Failu re: <15/m L/min /1.73 m2 [email or web address] The MDRD study equat ion has not been valid ated in child junior <18 years of age; pregn ant women ; the elder ly >85 years of age; or in some racia l or ethni c subgr oups, such as Hispa nics. Outsi de the valid ated sona eters , estim ated GFR is less accur ate, requi ring clini rita judgm ent on a case- by-ca se basis . Clini rita inter preta tion for other races and ages must be made by the clini zully. The MDRD study equat ion has not been valid ated for the evalu ation of serum creat inine relat ed to nutri yuval l statu s or medic ation usage . For perso ns <18 years of age, a pedia tric GFR calcu lator is avail able on the [facility] websi te: [email or web address] :[email or web address] [email or web address] culat or Not Available [facility] (Lab) [address] [place], [address], 07/03/2021 14:46:25 07/04/19 22 07/03/2021 COMPR EHENS DEEP METAB OLIC PANEL alkaline phosphatase 99 U/L 38-126 Not Available [facility] (Lab) [address] [place], [address], 07/03/2021 14:46:25 07/04/19 22 07/03/2021 COMPR EHENS DEEP METAB OLIC PANEL alanine aminotransfe rase 22 U/L 0-35 Not Available [facility] (Lab) [address] [place], [address], 07/03/2021 14:46:25 07/04/19 22 07/03/2021 COMPR EHENS DEEP METAB OLIC PANEL aspartate aminotransfe rase 21 U/L 15-37 Not Available [facility] (Lab) [address] [place], [address], 07/03/2021 14:46:25 07/04/19 22 07/03/2021 COMPR EHENS DEEP METAB OLIC PANEL bilirubin, total 0.40 mg/dL 0.20-1 .30 Not Available [facility] (Lab) [address] [place], [address], 07/03/2021 14:46:25 07/04/19 22 07/03/2021 COMPR EHENS DEEP METAB OLIC PANEL calcium 9.2 mg/dL 8.4-10 .2 Not Available [facility] (Lab) [address] [place], [address], 07/03/2021 14:46:25 07/04/19 22 07/03/2021 COMPR EHENS DEEP METAB OLIC PANEL total protein 7.6 g/dL 6.3-8. 2 Not Available [facility] (Lab) [address] [place], [address], 07/03/2021 14:46:25 07/04/19 22 07/03/2021 COMPR EHENS DEEP METAB OLIC PANEL albumin 4.2 g/dL 3.0-4. 4 Not Available [facility] (Lab) [address] [place], [address], 07/03/2021 14:46:25 07/04/19 22 07/03/2021 COMPR EHENS DEEP METAB OLIC PANEL globulin 3.4 g/dL 2.6-4. 2 Not Available [facility] (Lab) [address] [place], [address], 07/03/2021 14:46:25 07/04/19 22 07/03/2021 COMPR EHENS DEEP METAB OLIC PANEL A/G ratio 1.2 ratio 1.0-2. 0 Not Available [facility] (Lab) [address] [place], [address], 07/03/2021 14:46:25 07/04/19 22 07/03/2021 LIPID PANEL cholesterol 210 mg/dL 140-19 9 high [facility] NSUS RECOM MENDA TION FOR JOSH STERO L: ADULT CHILD LOW RISK: <200 <170 BORDE RLINE : <200- 239 ----- HIGH RISK: >240 >200 Not Available [facility] (Lab) [address] [place], [address], 07/03/2021 14:46:18 07/04/19 22 07/03/2021 LIPID PANEL triglyceride s 120 mg/dL 0-150 [facility] NSUS REPOR T RECOM MENDA TION FOR TRIGL YCERI NAKUL: ADULT CHILD LOW RISK: <150 ----- BODER LINE: 150-1 99 ----- HIGH RISK: >200 ----- Not Available [facility] (Lab) [address] [place], [address], 07/03/2021 14:46:18 07/04/19 22 07/03/2021 LIPID PANEL HDL cholesterol 52 mg/dL 40- Not Available [facility] (Lab) [address] [place], [address], 07/03/2021 14:46:18 07/04/19 22 07/03/2021 LIPID PANEL LDL cholesterol, calculated 134 mg/dL 0-130 high [facility] NSUS REPOR T RECOM MENDA TIONS FOR LDL: ADULT CHILD LOW RISK <130 <110 (OPTI MAL LDL) <100 ----- BORDE RLINE : 130-1 59 ----- HIGH RISK: >160 >130 A TRIGL YCERI DE RESUL T >400 INVAL IDATE S THE CALCU LATIO N FOR LDL FRACT IONAT ION - THE LDL RESUL T WILL NOT BE REPOR JETHRO. Not Available [facility] (Lab) [address] [place], [address], 07/03/2021 14:46:18 07/04/1907/03/2021 CBC/C OMPLE TE BLD COUNT W/DIF F white blood cells 8.5 x10'3 /uL 4.2-10 .8 Not Available [facility] (Lab) [address] [place], [address], 07/03/2021 14:16:07 07/04/19 22 07/03/2021 CBC/C OMPLE TE BLD COUNT W/DIF F red blood cells 5.09 x10'6 /uL 3.80-5 .20 Not Available [facility] (Lab) [address] [place], [address], 07/03/2021 14:16:07 07/04/19 22 07/03/2021 CBC/C OMPLE TE BLD COUNT W/DIF F hemoglobin 13.4 g/dL 12.0-1 5.6 Not Available [facility] (Lab) [address] [place], [address], 07/03/2021 14:16:07 07/04/19 22 07/03/2021 CBC/C OMPLE TE BLD COUNT W/DIF F hematocrit 42.5 % 35.7-4 5.7 Not Available [facility] (Lab) [address] [place], [address], 07/03/2021 14:16:07 07/04/19 22 07/03/2021 CBC/C OMPLE TE BLD COUNT W/DIF F mean red cell volume 83.5 fL 82.0-9 9.0 Not Available [facility] (Lab) [address] [place], [address], 07/03/2021 14:16:07 07/04/19 22 07/03/2021 CBC/C OMPLE TE BLD COUNT W/DIF F mean red cell hemoglobin 26.3 pg 27.0-3 3.0 low Not Available [facility] (Lab) [address] [place], [address], 07/03/2021 14:16:07 07/04/19 22 07/03/2021 CBC/C OMPLE TE BLD COUNT W/DIF F mean RBC HGB concentratio n 31.5 g/dL 31.0-3 6.0 Not Available [facility] (Lab) [address] [place], [address], 07/03/2021 14:16:07 07/04/19 22 07/03/2021 CBC/C OMPLE TE BLD COUNT W/DIF F red cell distribution width 14.0 % 11.8-1 5.5 Not Available [facility] (Lab) [address] [place], [address], 07/03/2021 14:16:07 07/04/19 22 07/03/2021 CBC/C OMPLE TE BLD COUNT W/DIF F platelets 346 x10'3 /uL 150-40 0 Not Available [facility] (Lab) [address] [place], [address], 07/03/2021 14:16:07 07/04/19 22 07/03/2021 CBC/C OMPLE TE BLD COUNT W/DIF F mean platelet volume 9.8 fL 9.0-12 .4 Not Available [facility] (Lab) [address] [place], [address], 07/03/2021 14:16:07 07/04/19 22 07/03/2021 CBC/C OMPLE TE BLD COUNT W/DIF F neutrophils 63.3 % 39.0-7 2.0 Not Available [facility] (Lab) [address] [place], [address], 07/03/2021 14:16:07 07/04/19 22 07/03/2021 CBC/C OMPLE TE BLD COUNT W/DIF F lymphocytes 28.2 % 16.0-4 7.0 Not Available [facility] (Lab) [address] [place], [address], 07/03/2021 14:16:07 07/04/19 22 07/03/2021 CBC/C OMPLE TE BLD COUNT W/DIF F monocytes 5.4 % 5.0-12 .0 Not Available [facility] (Lab) [address] [place], [address], 07/03/2021 14:16:07 07/04/19 22 07/03/2021 CBC/C OMPLE TE BLD COUNT W/DIF F eosinophils 1.6 % 1.0-7. 0 Not Available [facility] (Lab) [address] [place], [address], 07/03/2021 14:16:07 07/04/19 22 07/03/2021 CBC/C OMPLE TE BLD COUNT W/DIF F basophils 0.8 % 0.0-2. 0 Not Available [facility] (Lab) [address] [place], [address], 07/03/2021 14:16:07 07/04/19 22 07/03/2021 CBC/C OMPLE TE BLD COUNT W/DIF F immature granulocytes 0.7 % 0.00-0 .50 high Not Available [facility] (Lab) [address] [place], [address], 07/03/2021 14:16:07 07/04/19 22 07/03/2021 CBC/C OMPLE TE BLD COUNT W/DIF F neutrophils, absolute count 5.37 x10'3 /uL 1.5-8. 0 Not Available [facility] (Lab) [address] [place], [address], 07/03/2021 14:16:07 07/04/19 22 07/03/2021 CBC/C OMPLE TE BLD COUNT W/DIF F lymphocytes, absolute count 2.39 x10'3 /uL 1.07-3 .43 Not Available [facility] (Lab) [address] [place], [address], 07/03/2021 14:16:07 07/04/19 22 07/03/2021 CBC/C OMPLE TE BLD COUNT W/DIF F monocytes, absolute count 0.46 x10'3 /uL 0.29-0 .99 Not Available [facility] (Lab) [address] [place], [address], 07/03/2021 14:16:07 07/04/19 22 07/03/2021 CBC/C OMPLE TE BLD COUNT W/DIF F eosinophils, absolute count 0.14 x10'3 /uL 0.02-0 .53 Not Available [facility] (Lab) [address] [place], [address], 07/03/2021 14:16:07 07/04/19 22 07/03/2021 CBC/C OMPLE TE BLD COUNT W/DIF F basophils, absolute count 0.07 x10'3 /uL 0.01-0 .08 Not Available [facility] (Lab) [address] [place], [address], 07/03/2021 14:16:07 07/04/19 22 07/03/2021 CBC/C OMPLE TE BLD COUNT W/DIF F immature granulocytes ,absolute 0.06 x10'3 /uL 0.00-0 .05 high Not Available [facility] (Lab) [address] [place], [address], 07/03/2021 14:16:07 07/04/19 22 07/03/2021 CBC/C OMPLE TE BLD COUNT W/DIF F nucleated red blood cells 0.0 % -0 Not Available [facility] (Lab) [address] [place], [address], 07/03/2021 14:16:07 07/04/19 22 07/03/2021 CBC/C OMPLE TE BLD COUNT W/DIF F NRBC# 0.00 x10'3 /uL Not Available [facility] (Lab) [address] [place], [address], 07/03/2021 14:16:07 10/02/19 22 10/01/2021 VITAM IN D 25-HY DROXY vd25oh 28.2 NG/mL 30-100 low Vitam in D Statu s: Defic ient: <20 ng/mL Insuf ficie nt: 20-29 ng/mL Suffi cient : 30-10 0 ng/mL Not Available [facility] (Lab) [address] [place], [address], 10/01/2021 16:56:58 11/10/19 22 11/09/2021 VITAM IN D 25-HY DROXY vd25oh 31.0 NG/mL 30-100 Vitam in D Statu s: Defic ient: <20 ng/mL Insuf ficie nt: 20-29 ng/mL Suffi cient : 30-10 0 ng/mL Not Available [facility] (Lab) [address] [place], [address], 11/09/2021 19:12:33 05/11/19 23 05/10/2022 LIPID PANEL cholesterol 192 mg/dL 140-19 9 [facility] NSUS RECOM MENDA TION FOR JOSH STERO L: ADULT CHILD LOW RISK: <200 <170 BORDE RLINE : <200- 239 ----- HIGH RISK: >240 >200 Not Available [facility] (Lab) [address] [place], [address], 05/10/2022 13:30:31 05/11/19 23 05/10/2022 LIPID PANEL triglyceride s 208 mg/dL 0-150 high [facility] NSUS REPOR T RECOM MENDA TION FOR TRIGL YCERI NAKUL: ADULT CHILD LOW RISK: <150 ----- BODER LINE: 150-1 99 ----- HIGH RISK: >200 ----- Not Available [facility] (Lab) [address] [place], [address], 05/10/2022 13:30:31 05/11/19 23 05/10/2022 LIPID PANEL HDL cholesterol 46 mg/dL 40- Not Available [facility] (Lab) [address] [place], [address], 05/10/2022 13:30:31 05/11/19 23 05/10/2022 LIPID PANEL LDL cholesterol, calculated 104 mg/dL 0-130 [facility] NSUS REPOR T RECOM MENDA TIONS FOR LDL: ADULT CHILD LOW RISK <130 <110 (OPTI MAL LDL) <100 ----- BORDE RLINE : 130-1 59 ----- HIGH RISK: >160 >130 A TRIGL YCERI DE RESUL T >400 INVAL IDATE S THE CALCU LATIO N FOR LDL FRACT IONAT ION - THE LDL RESUL T WILL NOT BE REPOR JETHRO. Not Available [facility] (Lab) [address] [place], [address], 05/10/2022 13:30:31 05/11/19 23 05/10/2022 COMPR EHENS DEEP METAB OLIC PANEL sodium 138 mmol/ L 137-14 5 Not Available [facility] (Lab) [address] [place], [address], 05/10/2022 13:30:45 05/11/19 23 05/10/2022 COMPR EHENS DEEP METAB OLIC PANEL potassium 3.4 mmol/ L 3.5-5. 1 low Not Available [facility] (Lab) [address] [place], [address], 05/10/2022 13:30:45 05/11/19 23 05/10/2022 COMPR EHENS DEEP METAB OLIC PANEL chloride 105 mmol/ L 98-107 Not Available [facility] (Lab) [address] [place], [address], 05/10/2022 13:30:45 05/11/19 23 05/10/2022 COMPR EHENS DEEP METAB OLIC PANEL carbon dioxide 26 mmol/ L 22-30 Not Available [facility] (Lab) [address] [place], [address], 05/10/2022 13:30:45 05/11/19 23 05/10/2022 COMPR EHENS DEEP METAB OLIC PANEL anion gap 10.4 mmol/ L 14-22 low Not Available [facility] (Lab) [address] [place], [address], 05/10/2022 13:30:45 05/11/19 23 05/10/2022 COMPR EHENS DEEP METAB OLIC PANEL glucose 240 mg/dL 70-99 high Not Available [facility] (Lab) [address] [place], [address], 05/10/2022 13:30:45 05/11/19 23 05/10/2022 COMPR EHENS DEEP METAB OLIC PANEL BUN 14 mg/dL 8-19 Not Available [facility] (Lab) [address] [place], [address], 05/10/2022 13:30:45 05/11/19 23 05/10/2022 COMPR EHENS DEEP METAB OLIC PANEL creatinine 0.75 mg/dL 0.66-1 .25 Not Available [facility] (Lab) [address] [place], [address], 05/10/2022 13:30:45 05/11/19 23 05/10/2022 COMPR EHENS DEEP METAB OLIC PANEL GFR >60 Refer ence Range : [place] ge GFR Healt hy Adult : >60 mL/mi n/1.7 3 m2 Chron ic Kidne y Disea se: 15-60 mL/mi n/1.7 3 m2 Kidne y Failu re: <15/m L/min /1.73 m2 www.n iddk. nih.g ov The MDRD study equat ion has not been valid ated in child junior <18 years of age; pregn ant women ; the elder ly >85 years of age; or in some racia l or ethni c subgr oups, such as Hispa nics. Outsi de the valid ated sona eters , estim ated GFR is less accur ate, requi ring clini rita judgm ent on a case- by-ca se basis . Clini rita inter preta tion for other races and ages must be made by the clini zully. The MDRD study equat ion has not been valid ated for the evalu ation of serum creat inine relat ed to nutri yuval l statu s or medic ation usage . For perso ns <18 years of age, a pedia tric GFR calcu lator is avail able on the [facility] websi te: https ://jose w.kid suresh.o rg/pr ofess ional s/kdo qi/gf r_cal culat or Not Available [facility] (Lab) [address] [place], [address], 05/10/2022 13:30:45 05/11/19 23 05/10/2022 COMPR EHENS DEEP METAB OLIC PANEL alkaline phosphatase 95 U/L 38-126 Not Available [facility] (Lab) [address] [place], [address], 05/10/2022 13:30:45 05/11/19 23 05/10/2022 COMPR EHENS DEEP METAB OLIC PANEL alanine aminotransfe rase 23 U/L 0-35 Not Available [facility] (Lab) [address] [place], [address], 05/10/2022 13:30:45 05/11/19 23 05/10/2022 COMPR EHENS EDEP METAB OLIC PANEL aspartate aminotransfe rase 20 U/L 15-37 Not Available [facility] (Lab) [address] [place], [address], 05/10/2022 13:30:45 05/11/19 23 05/10/2022 COMPR EHENS DEEP METAB OLIC PANEL bilirubin, total 0.40 mg/dL 0.20-1 .30 Not Available [facility] (Lab) [address] [place], [address], 05/10/2022 13:30:45 05/11/19 23 05/10/2022 COMPR EHENS DEEP METAB OLIC PANEL calcium 8.4 mg/dL 8.4-10 .2 Not Available [facility] (Lab) [address] [place], [address], 05/10/2022 13:30:45 05/11/19 23 05/10/2022 COMPR EHENS DEEP METAB OLIC PANEL total protein 6.8 g/dL 6.3-8. 2 Not Available [facility] (Lab) [address] [place], [address], 05/10/2022 13:30:45 05/11/19 23 05/10/2022 COMPR EHENS DEEP METAB OLIC PANEL albumin 3.7 g/dL 3.0-4. 4 Not Available [facility] (Lab) [address] [place], [address], 05/10/2022 13:30:45 05/11/19 23 05/10/2022 COMPR EHENS DEEP METAB OLIC PANEL globulin 3.1 g/dL 2.6-4. 2 Not Available [facility] (Lab) [address] [place], [address], 05/10/2022 13:30:45 05/11/19 23 05/10/2022 COMPR EHENS DEEP METAB OLIC PANEL A/G ratio 1.2 ratio 1.0-2. 0 Not Available [facility] (Lab) [address] [place], [address], 05/10/2022 13:30:45 05/11/19 23 05/10/2022 HEMOG LOBIN A1C HA1C 6.9 % 4.0-6. 0 high Diabe sara Scree dakotah Crite mel: <5.7% Consi stent with absen ce of diabe sara 5.7-6 .4% Consi stent with incre ased risk for diabe sara (pred iabet es) >OR=6 .5% Consi stent with diabe sara REFER ENCE: Diabe sara Care 2016, 39(Ro ppl.1 ):s13 -s22 Not Available [facility] (Lab) [address] [place], [address], 05/10/2022 17:12:50 08/04/19 23 08/03/2022 RAPID STREP A DNA strep A DNA, DANGELO NEGATI VE negati ve Not Available [facility] (Lab) [address] [place], [address], 08/03/2022 14:12:05 08/04/19 23 08/03/2022 SARS- COV-2 RNA(C OVID1 9),RT -PCR sars-cov-2 RNA(covid19) ,RT-PCR NEGATI VE This test has been autho rized by the FDA under an Emerg ency Use Autho rizat ion (EUA) for use by autho rized labor atori es. Negat deep resul ts do not precl ude SARS- CoV-2 and shoul d not be used as the sole basis for treat ment or other patie nt manag ement decis ions. Test resul ts shoul d be corre lated with the clini rita histo ry, epide miolo gical data, and other data avail able to the clini zully evalu ating the patie nt. Chang tran w the Fact Sheet s for healt h care provi ders and patie nts at the [facility] sara: https ://ww w.fda .gov/ media /1363 12/do wnloa d https ://ww w.fda .gov/ media /1363 13/do wnloa d https ://ww w.fda .gov/ media /1421 92/do wnloa d https ://ww w.fda .gov/ media /1421 91/do wnloa d [employer] feder[employer] y: Real- Time RT-PC R Not Available [facility] (Lab) [address] [place], [address], 08/03/2022 14:15:16 11/16/19 23 11/15/2022 CBC/C OMPLE TE BLD COUNT W/DIF F white blood cells 9.0 x10'3 /uL 4.2-10 .8 Not Available [facility] (Lab) [address] [place], [address], 11/15/2022 11:34:54 11/16/19 23 11/15/2022 CBC/C OMPLE TE BLD COUNT W/DIF F red blood cells 5.01 x10'6 /uL 3.80-5 .20 Not Available [facility] (Lab) [address] [place], [address], 11/15/2022 11:34:54 11/16/19 23 11/15/2022 CBC/C OMPLE TE BLD COUNT W/DIF F hemoglobin 12.9 g/dL 12.0-1 5.6 Not Available [facility] (Lab) [address] [place], [address], 11/15/2022 11:34:54 11/16/19 23 11/15/2022 CBC/C OMPLE TE BLD COUNT W/DIF F hematocrit 40.2 % 35.7-4 5.7 Not Available [facility] (Lab) [address] [place], [address], 11/15/2022 11:34:54 11/16/19 23 11/15/2022 CBC/C OMPLE TE BLD COUNT W/DIF F mean red cell volume 80.2 fL 82.0-9 9.0 low Not Available [facility] (Lab) [address] [place], [address], 11/15/2022 11:34:54 11/16/19 23 11/15/2022 CBC/C OMPLE TE BLD COUNT W/DIF F mean red cell hemoglobin 25.7 pg 27.0-3 3.0 low Not Available [facility] (Lab) [address] [place], [address], 11/15/2022 11:34:54 0911/15/2022 CBC/C OMPLE TE BLD COUNT W/DIF F mean RBC HGB concentratio n 32.1 g/dL 31.0-3 6.0 Not Available [facility] (Lab) [address] [place], [address], 11/15/2022 11:34:54 11/16/19 23 11/15/2022 CBC/C OMPLE TE BLD COUNT W/DIF F red cell distribution width 15.3 % 11.8-1 5.5 Not Available [facility] (Lab) [address] [place], [address], 11/15/2022 11:34:54 11/16/1911/15/2022 CBC/C OMPLE TE BLD COUNT W/DIF F platelets 341 x10'3 /uL 150-40 0 Not Available [facility] (Lab) [address] [place], [address], 11/15/2022 11:34:54 11/16/19 23 11/15/2022 CBC/C OMPLE TE BLD COUNT W/DIF F mean platelet volume 9.5 fL 9.0-12 .4 Not Available [facility] (Lab) [address] [place], [address], 11/15/2022 11:34:54 11/16/19 23 11/15/2022 CBC/C OMPLE TE BLD COUNT W/DIF F neutrophils 62.2 % 39.0-7 2.0 Not Available [facility] (Lab) [address] [place], [address], 11/15/2022 11:34:54 11/16/1911/15/2022 CBC/C OMPLE TE BLD COUNT W/DIF F lymphocytes 29.7 % 16.0-4 7.0 Not Available [facility] (Lab) [address] [place], [address], 11/15/2022 11:34:54 09/18/20 23 11/15/2022 CBC/C OMPLE TE BLD COUNT W/DIF F monocytes 4.8 % 5.0-12 .0 low Not Available [facility] (Lab) [address] [place], [address], 11/15/2022 11:34:54 11/16/19 23 11/15/2022 CBC/C OMPLE TE BLD COUNT W/DIF F eosinophils 1.9 % 1.0-7. 0 Not Available [facility] (Lab) [address] [place], [address], 11/15/2022 11:34:54 11/16/19 23 11/15/2022 CBC/C OMPLE TE BLD COUNT W/DIF F basophils 0.7 % 0.0-2. 0 Not Available [facility] (Lab) [address] [place], [address], 11/15/2022 11:34:54 11/16/19 23 11/15/2022 CBC/C OMPLE TE BLD COUNT W/DIF F immature granulocytes 0.7 % 0.00-0 .50 high Not Available [facility] (Lab) [address] [place], [address], 11/15/2022 11:34:54 11/16/19 23 11/15/2022 CBC/C OMPLE TE BLD COUNT W/DIF F neutrophils, absolute count 5.60 x10'3 /uL 1.5-8. 0 Not Available [facility] (Lab) [address] [place], [address], 11/15/2022 11:34:54 11/16/19 23 11/15/2022 CBC/C OMPLE TE BLD COUNT W/DIF F lymphocytes, absolute count 2.67 x10'3 /uL 1.07-3 .43 Not Available [facility] (Lab) [address] [place], [address], 11/15/2022 11:34:54 11/16/19 23 11/15/2022 CBC/C OMPLE TE BLD COUNT W/DIF F monocytes, absolute count 0.43 x10'3 /uL 0.29-0 .99 Not Available [facility] (Lab) [address] [place], [address], 11/15/2022 11:34:54 11/16/19 23 11/15/2022 CBC/C OMPLE TE BLD COUNT W/DIF F eosinophils, absolute count 0.17 x10'3 /uL 0.02-0 .53 Not Available [facility] (Lab) [address] [place], [address], 11/15/2022 11:34:54 11/16/19 23 11/15/2022 CBC/C OMPLE TE BLD COUNT W/DIF F basophils, absolute count 0.06 x10'3 /uL 0.01-0 .08 Not Available [facility] (Lab) [address] [place], [address], 11/15/2022 11:34:54 11/16/19 23 11/15/2022 CBC/C OMPLE TE BLD COUNT W/DIF F immature granulocytes ,absolute 0.06 x10'3 /uL 0.00-0 .05 high Not Available [facility] (Lab) [address] [place], [address], 11/15/2022 11:34:54 11/16/19 23 11/15/2022 CBC/C OMPLE TE BLD COUNT W/DIF F nucleated red blood cells 0.0 % -0 Not Available [facility] (Lab) [address] [place], [address], 11/15/2022 11:34:54 11/16/19 23 11/15/2022 CBC/C OMPLE TE BLD COUNT W/DIF F NRBC# 0.00 x10'3 /uL Not Available [facility] (Lab) [address] [place], [address], 11/15/2022 11:34:54 11/16/1911/15/2022 LIPID PANEL cholesterol 255 mg/dL 140-19 9 high [facility] NSUS RECOM MENDA TION FOR JOSH STERO L: ADULT CHILD LOW RISK: <200 <170 BORDE RLINE : <200- 239 ----- HIGH RISK: >240 >200 Not Available [facility] (Lab) [address] [place], [address], 11/15/2022 12:56:08 11/16/1911/15/2022 LIPID PANEL triglyceride s 220 mg/dL 0-150 high [facility] NSUS REPOR T RECOM MENDA TION FOR TRIGL YCERI NAKUL: ADULT CHILD LOW RISK: <150 ----- BODER LINE: 150-1 99 ----- HIGH RISK: >200 ----- Not Available [facility] (Lab) [address] [place], [address], 11/15/2022 12:56:08 11/16/1911/15/2022 LIPID PANEL HDL cholesterol 47 mg/dL 40- Not Available [facility] (Lab) [address] [place], [address], 11/15/2022 12:56:08 11/16/1911/15/2022 LIPID PANEL LDL cholesterol, calculated 164 mg/dL 0-130 high [facility] NSUS REPOR T RECOM MENDA TIONS FOR LDL: ADULT CHILD LOW RISK <130 <110 (OPTI MAL LDL) <100 ----- BORDE RLINE : 130-1 59 ----- HIGH RISK: >160 >130 A TRIGL YCERI DE RESUL T >400 INVAL IDATE S THE CALCU LATIO N FOR LDL FRACT IONAT ION - THE LDL RESUL T WILL NOT BE REPOR JETHRO. Not Available [facility] (Lab) [address] [place], [address], 11/15/2022 12:56:08 11/16/19 23 11/15/2022 COMPR EHENS DEEP METAB OLIC PANEL sodium 139 mmol/ L 137-14 5 Not Available [facility] (Lab) [address] [place], [address], 11/15/2022 12:56:25 11/16/19 23 11/15/2022 COMPR EHENS DEEP METAB OLIC PANEL potassium 3.7 mmol/ L 3.5-5. 1 Not Available [facility] (Lab) [address] [place], [address], 11/15/2022 12:56:25 11/16/19 23 11/15/2022 COMPR EHENS DEEP METAB OLIC PANEL chloride 103 mmol/ L 98-107 Not Available [facility] (Lab) [address] [place], [address], 11/15/2022 12:56:25 11/16/19 23 11/15/2022 COMPR EHENS DEEP METAB OLIC PANEL carbon dioxide 27 mmol/ L 22-30 Not Available [facility] (Lab) [address] [place], [address], 11/15/2022 12:56:25 11/16/19 23 11/15/2022 COMPR EHENS DEEP METAB OLIC PANEL anion gap 12.7 mmol/ L 14-22 low Not Available [facility] (Lab) [address] [place], [address], 11/15/2022 12:56:25 11/16/19 23 11/15/2022 COMPR EHENS DEEP METAB OLIC PANEL glucose 127 mg/dL 70-99 high Not Available [facility] (Lab) [address] [place], [address], 11/15/2022 12:56:25 11/16/19 23 11/15/2022 COMPR EHENS DEEP METAB OLIC PANEL BUN 12 mg/dL 8-19 Not Available [facility] (Lab) [address] [place], [address], 11/15/2022 12:56:25 11/16/1911/15/2022 COMPR EHENS DEEP METAB OLIC PANEL creatinine 0.88 mg/dL 0.66-1 .25 Not Available [facility] (Lab) [address] [place], [address], 11/15/2022 12:56:25 11/16/1911/15/2022 COMPR EHENS DEEP METAB OLIC PANEL GFR >60 Refer ence Range : [place] [facility] GFR Healt hy Adult : >60 mL/mi n/1.7 3 m2 Chron ic Kidne y Disea se: 15-60 mL/mi n/1.7 3 m2 Kidne y Failu re: <15/m L/min /1.73 m2 [email or web address] [email or web address] nih.g ov The MDRD study equat ion has not been valid ated in child junior <18 years of age; pregn ant women ; the elder ly >85 years of age; or in some racia l or ethni c subgr oups, such as Hisnd nics. Outsi de the valid ated sona eters , estim ated GFR is less accur ate, requi ring clini rita judgm ent on a case- by-ca se basis . Clini rita inter preta tion for other races and ages must be made by the clini zully. The MDRD study equat ion has not been valid ated for the evalu ation of serum creat inine relat ed to nutri yuval l statu s or medic ation usage . For perso ns <18 years of age, a pedia tric GFR calcu lator is avail able on the [employer] websi te: https :[email or web address] [email or web address] [email or web address]/pr negrita luciaal s/kdo qi/gf r_cal culat or Not Available [facility] (Lab) [address] [place], [address], 11/15/2022 12:56:25 11/16/1911/15/2022 COMPR EHENS DEEP METAB OLIC PANEL alkaline phosphatase 84 U/L 38-126 Not Available [facility] (Lab) [address] [place], [address], 11/15/2022 12:56:25 11/16/19 23 11/15/2022 COMPR EHENS DEEP METAB OLIC PANEL alanine aminotransfe rase 26 U/L 0-35 Not Available [facility] (Lab) [address] [place], [address], 11/15/2022 12:56:25 11/16/19 23 11/15/2022 COMPR EHENS DEEP METAB OLIC PANEL aspartate aminotransfe rase 20 U/L 15-37 Not Available [facility] (Lab) [address] [place], [address], 11/15/2022 12:56:25 11/16/19 23 11/15/2022 COMPR EHENS DEEP METAB OLIC PANEL bilirubin, total 0.40 mg/dL 0.20-1 .30 Not Available [facility] (Lab) [address] [place], [address], 11/15/2022 12:56:25 11/16/19 23 11/15/2022 COMPR EHENS DEEP METAB OLIC PANEL calcium 9.4 mg/dL 8.4-10 .2 Not Available [facility] (Lab) [address] [place], [address], 11/15/2022 12:56:25 11/16/19 23 11/15/2022 COMPR EHENS DEEP METAB OLIC PANEL total protein 7.3 g/dL 6.3-8. 2 Not Available [facility] (Lab) [address] [place], [address], 11/15/2022 12:56:25 11/16/19 23 11/15/2022 COMPR EHENS DEEP METAB OLIC PANEL albumin 4.0 g/dL 3.0-4. 4 Not Available [facility] (Lab) [address] [place], [address], 11/15/2022 12:56:25 11/16/19 23 11/15/2022 COMPR EHENS DEEP METAB OLIC PANEL globulin 3.3 g/dL 2.6-4. 2 Not Available [facility] (Lab) [address] [place], [address], 11/15/2022 12:56:25 11/16/19 23 11/15/2022 COMPR EHENS DEEP METAB OLIC PANEL A/G ratio 1.2 ratio 1.0-2. 0 Not Available [facility] (Lab) [address] [place], [address], 11/15/2022 12:56:25 11/16/19 23 11/15/2022 HEMOG LOBIN A1C HA1C 6.3 % 4.0-6. 0 high Diabe sara Scree [place]akotah Crite mel: <5.7% Consi stent with absen ce of diabe sara 5.7-6 .4% Consi stent with incre ased risk for diabe sara (pred iabet es) >OR=6 .5% Consi stent with diabe sara REFER ENCE: Diabe sara Care 2016, 39(Ro ppl.1 ):s13 -s22 Not Available [facility] (Lab) [address] [place], [address], 11/15/2022 14:50:27 07/18/19 24 07/18/2023 CBC/C OMPLE TE BLD COUNT W/DIF F white blood cells 8.6 x10'3 /uL 4.2-10 .8 Not Available [facility] (Lab) [address] [place], [address], 07/18/2023 12:42:59 07/18/19 24 07/18/2023 CBC/C OMPLE TE BLD COUNT W/DIF F red blood cells 4.47 x10'6 /uL 3.80-5 .20 Not Available [facility] (Lab) [address] [place], [address], 07/18/2023 12:42:59 07/18/19 24 07/18/2023 CBC/C OMPLE TE BLD COUNT W/DIF F hemoglobin 11.8 g/dL 12.0-1 5.6 low Not Available [facility] (Lab) [address] [place], [address], 07/18/2023 12:42:59 07/18/19 24 07/18/2023 CBC/C OMPLE TE BLD COUNT W/DIF F hematocrit 37.4 % 35.7-4 5.7 Not Available [facility] (Lab) [address] [place], [address], 07/18/2023 12:42:59 07/18/19 24 07/18/2023 CBC/C OMPLE TE BLD COUNT W/DIF F mean red cell volume 83.7 fL 82.0-9 9.0 Not Available [facility] (Lab) [address] [place], [address], 07/18/2023 12:42:59 07/18/19 24 07/18/2023 CBC/C OMPLE TE BLD COUNT W/DIF F mean red cell hemoglobin 26.4 pg 27.0-3 3.0 low Not Available [facility] (Lab) [address] [place], [address], 07/18/2023 12:42:59 07/18/19 24 07/18/2023 CBC/C OMPLE TE BLD COUNT W/DIF F mean RBC HGB concentratio n 31.6 g/dL 31.0-3 6.0 Not Available [facility] (Lab) [address] [place], [address], 07/18/2023 12:42:59 07/18/19 24 07/18/2023 CBC/C OMPLE TE BLD COUNT W/DIF F red cell distribution width 14.0 % 11.8-1 5.5 Not Available [facility] (Lab) [address] [place], [address], 07/18/2023 12:42:59 07/18/19 24 07/18/2023 CBC/C OMPLE TE BLD COUNT W/DIF F platelets 315 x10'3 /uL 150-40 0 Not Available [facility] (Lab) [address] [place], [address], 07/18/2023 12:42:59 07/18/19 24 07/18/2023 CBC/C OMPLE TE BLD COUNT W/DIF F mean platelet volume 10.3 fL 9.0-12 .4 Not Available [facility] (Lab) [address] [place], [address], 07/18/2023 12:42:59 07/18/19 24 07/18/2023 CBC/C OMPLE TE BLD COUNT W/DIF F neutrophils 62.5 % 39.0-7 2.0 Not Available [facility] (Lab) [address] [place], [address], 07/18/2023 12:42:59 07/18/19 24 07/18/2023 CBC/C OMPLE TE BLD COUNT W/DIF F lymphocytes 29.4 % 16.0-4 7.0 Not Available [facility] (Lab) [address] [place], [address], 07/18/2023 12:42:59 07/18/19 24 07/18/2023 CBC/C OMPLE TE BLD COUNT W/DIF F monocytes 4.6 % 5.0-12 .0 low Not Available [facility] (Lab) [address] [place], [address], 07/18/2023 12:42:59 07/18/19 24 07/18/2023 CBC/C OMPLE TE BLD COUNT W/DIF F eosinophils 2.3 % 1.0-7. 0 Not Available [facility] (Lab) [address] [place], [address], 07/18/2023 12:42:59 07/18/19 24 07/18/2023 CBC/C OMPLE TE BLD COUNT W/DIF F basophils 0.7 % 0.0-2. 0 Not Available [facility] (Lab) [address] [place], [address], 07/18/2023 12:42:59 07/18/19 24 07/18/2023 CBC/C OMPLE TE BLD COUNT W/DIF F immature granulocytes 0.5 % 0.00-0 .50 Not Available [facility] (Lab) [address] [place], [address], 07/18/2023 12:42:59 07/18/19 24 07/18/2023 CBC/C OMPLE TE BLD COUNT W/DIF F neutrophils, absolute count 5.39 x10'3 /uL 1.5-8. 0 Not Available [facility] (Lab) [address] [place], [address], 07/18/2023 12:42:59 07/18/19 24 07/18/2023 CBC/C OMPLE TE BLD COUNT W/DIF F lymphocytes, absolute count 2.53 x10'3 /uL 1.07-3 .43 Not Available [facility] (Lab) [address] [place], [address], 07/18/2023 12:42:59 07/18/19 24 07/18/2023 CBC/C OMPLE TE BLD COUNT W/DIF F monocytes, absolute count 0.40 x10'3 /uL 0.29-0 .99 Not Available [facility] (Lab) [address] [place], [address], 07/18/2023 12:42:59 07/18/19 24 07/18/2023 CBC/C OMPLE TE BLD COUNT W/DIF F eosinophils, absolute count 0.20 x10'3 /uL 0.02-0 .53 Not Available [facility] (Lab) [address] [place], [address], 07/18/2023 12:42:59 07/18/19 24 07/18/2023 CBC/C OMPLE TE BLD COUNT W/DIF F basophils, absolute count 0.06 x10'3 /uL 0.01-0 .08 Not Available [facility] (Lab) [address] [place], [address], 07/18/2023 12:42:59 07/18/19 24 07/18/2023 CBC/C OMPLE TE BLD COUNT W/DIF F immature granulocytes ,absolute 0.04 x10'3 /uL 0.00-0 .05 Not Available [facility] (Lab) [address] [place], [address], 07/18/2023 12:42:59 07/18/19 24 07/18/2023 CBC/C OMPLE TE BLD COUNT W/DIF F nucleated red blood cells 0.0 % -0 Not Available [facility] (Lab) [address] [place], [address], 07/18/2023 12:42:59 07/18/19 24 07/18/2023 CBC/C OMPLE TE BLD COUNT W/DIF F NRBC# 0.00 x10'3 /uL Not Available [facility] (Lab) [address] [place], [address], 07/18/2023 12:42:59 07/18/19 24 07/18/2023 VITAM IN D 25-HY DROXY [id number] 31.3 NG/mL 30-100 Vitam in D Statu s: Defic ient: <20 ng/mL Insuf ficie nt: 20-29 ng/mL Suffi cient : 30-10 0 ng/mL Not Available [facility] (Lab) [address] [place], [address], 07/18/2023 14:18:53 07/18/19 24 07/18/2023 LIPID PANEL cholesterol 152 mg/dL 140-19 9 [facility] CHRI[facility] NSUS RECOM MENDA TION FOR JOSH STERO L: ADULT CHILD LOW RISK: <200 <170 BORDE RLINE : <200- 239 ----- HIGH RISK: >240 >200 Not Available [facility] (Lab) [address] [place], [address], 07/18/2023 14:21:37 07/18/19 24 07/18/2023 LIPID PANEL triglyceride s 200 mg/dL 0-150 high NIH CHRI[facility]IANO NSUS REPOR T RECOM MENDA TION FOR TRIGL YCERI NAKUL: ADULT CHILD LOW RISK: <150 ----- BODER LINE: 150-1 99 ----- HIGH RISK: >200 ----- Not Available [facility] (Lab) [address] [place], [address], 07/18/2023 14:21:37 07/18/19 24 07/18/2023 LIPID PANEL HDL cholesterol 47 mg/dL 40- Not Available [facility] (Lab) [address] [place], [address], 07/18/2023 14:21:37 07/18/19 24 07/18/2023 LIPID PANEL LDL cholesterol, calculated 65 mg/dL 0-130 NIH CHRI[facility]IANO NSUS REPOR T RECOM MENDA TIONS FOR LDL: ADULT CHILD LOW RISK <130 <110 (OPTI MAL LDL) <100 ----- BORDE RLINE : 130-1 59 ----- HIGH RISK: >160 >130 A TRIGL YCERI DE RESUL T >400 INVAL IDATE S THE CALCU LATIO N FOR LDL FRACT IONAT ION - THE LDL RESUL T WILL NOT BE REPOR JETHRO. Not Available [facility] (Lab) [address] [place], [address], 07/18/2023 14:21:37 07/18/19 24 07/18/2023 COMPR EHENS DEEP METAB OLIC PANEL sodium 137 mmol/ L 137-14 5 Not Available [facility] (Lab) [address] [place], [address], 07/18/2023 14:21:48 07/18/19 24 07/18/2023 COMPR EHENS DEEP METAB OLIC PANEL potassium 4.4 mmol/ L 3.5-5. 1 Not Available [facility] (Lab) [address] [place], [address], 07/18/2023 14:21:48 07/18/19 24 07/18/2023 COMPR EHENS DEEP METAB OLIC PANEL chloride 105 mmol/ L 98-107 Not Available [facility] (Lab) [address] [place], [address], 07/18/2023 14:21:48 07/18/19 24 07/18/2023 COMPR EHENS DEEP METAB OLIC PANEL carbon dioxide 28 mmol/ L 22-30 Not Available [facility] (Lab) [address] [place], [address], 07/18/2023 14:21:48 07/18/19 24 07/18/2023 COMPR EHENS DEEP METAB OLIC PANEL anion gap 8.4 mmol/ L 14-22 low Not Available [facility] (Lab) [address] [place], [address], 07/18/2023 14:21:48 07/18/19 24 07/18/2023 COMPR EHENS DEEP METAB OLIC PANEL glucose 135 mg/dL 70-99 high Not Available [facility] (Lab) [address] [place], [address], 07/18/2023 14:21:48 07/18/19 24 07/18/2023 COMPR EHENS DEEP METAB OLIC PANEL BUN 15 mg/dL 8-19 Not Available [facility] (Lab) [address] [place], [address], 07/18/2023 14:21:48 07/18/19 24 07/18/2023 COMPR EHENS DEEP METAB OLIC PANEL creatinine 0.90 mg/dL 0.66-1 .25 Not Available [facility] (Lab) [address] [place], [address], 07/18/2023 14:21:48 07/18/19 24 07/18/2023 COMPR EHENS DEEP METAB OLIC PANEL GFR >60 Refer ence Range : [place] ge GFR Healt hy Adult : >60 mL/mi n/1.7 3 m2 Chron ic Kidne y Disea se: 15-60 mL/mi n/1.7 3 m2 Kidne y Failu re: <15/m L/min /1.73 m2 www.n iddk. nih.g ov The MDRD study equat ion has not been valid ated in child junior <18 years of age; pregn ant women ; the elder ly >85 years of age; or in some racia l or ethni c subgr oups, such as Hisnd nics. Outsi de the valid ated sona eters , estim ated GFR is less accur ate, requi ring clini rita judgm ent on a case- by-ca se basis . Clini rita inter preta tion for other races and ages must be made by the clini zully. The MDRD study equat ion has not been valid ated for the evalu ation of serum creat inine relat ed to nutri yuval l statu s or medic ation usage . For perso ns <18 years of age, a pedia tric GFR calcu lator is avail able on the [employer] websi te: https :[email or web address] prince.o rg/pr saudess ional s/kdo qi/gf r_cal culat or Not Available [facility] (Lab) [address] [place], [address], 07/18/2023 14:21:48 07/18/19 24 07/18/2023 COMPR EHENS DEEP METAB OLIC PANEL alkaline phosphatase 102 U/L 38-126 Not Available [facility] (Lab) [address] [place], [address], 07/18/2023 14:21:48 07/18/19 24 07/18/2023 COMPR EHENS DEEP METAB OLIC PANEL alanine aminotransfe rase 22 U/L 0-35 Not Available [facility] (Lab) [address] [place], [address], 07/18/2023 14:21:48 07/18/19 24 07/18/2023 COMPR EHENS DEEP METAB OLIC PANEL aspartate aminotransfe rase 22 U/L 15-37 Not Available [facility] (Lab) [address] [place], [address], 07/18/2023 14:21:48 07/18/19 24 07/18/2023 COMPR EHENS DEEP METAB OLIC PANEL bilirubin, total 0.60 mg/dL 0.20-1 .30 Not Available [facility] (Lab) [address] [place], [address], 07/18/2023 14:21:48 07/18/19 24 07/18/2023 COMPR EHENS DEEP METAB OLIC PANEL calcium 9.1 mg/dL 8.4-10 .2 Not Available [facility] (Lab) [address] [place], [address], 07/18/2023 14:21:48 07/18/19 24 07/18/2023 COMPR EHENS DEEP METAB OLIC PANEL total protein 6.9 g/dL 6.3-8. 2 Not Available [facility] (Lab) [address] [place], [address], 07/18/2023 14:21:48 07/18/19 24 07/18/2023 COMPR EHENS DEEP METAB OLIC PANEL albumin 3.8 g/dL 3.0-4. 4 Not Available [facility] (Lab) [address] [place], [address], 07/18/2023 14:21:48 07/18/19 24 07/18/2023 COMPR EHENS DEEP METAB OLIC PANEL globulin 3.1 g/dL 2.6-4. 2 Not Available [facility] (Lab) [address] [place], [address], 07/18/2023 14:21:48 07/18/19 24 07/18/2023 COMPR EHENS DEEP METAB OLIC PANEL A/G ratio 1.2 ratio 1.0-2. 0 Not Available [facility] (Lab) [address] [place], [address], 07/18/2023 14:21:48 07/18/19 24 07/18/2023 HEMOG LOBIN A1C HA1C 6.3 % 4.0-6. 0 high Diabe sara Scree dakotah Crite mel: <5.7% Consi stent with absen ce of diabe sara 5.7-6 .4% Consi stent with incre ased risk for diabe sara (pred iabet es) >OR=6 .5% Consi stent with diabe sara REFER ENCE: Diabe sara Care 2016, 39(Ro ppl.1 ):s13 -s22 Not Available [facility] (Lab) [address] [place], [address], 07/18/2023 21:54:57 11/07/19 24 11/07/2023 CBC/C OMPLE TE BLD COUNT W/DIF F white blood cells 11.3 x10'3 /uL 4.2-10 .8 high Not Available [facility] (Lab) [address] [place], [address], 11/07/2023 11:13:19 11/07/19 24 11/07/2023 CBC/C OMPLE TE BLD COUNT W/DIF F red blood cells 5.21 x10'6 /uL 3.80-5 .20 high Not Available [facility] (Lab) [address] [place], [address], 11/07/2023 11:13:19 11/07/19 24 11/07/2023 CBC/C OMPLE TE BLD COUNT W/DIF F hemoglobin 13.7 g/dL 12.0-1 5.6 Not Available [facility] (Lab) [address] [place], [address], 11/07/2023 11:13:19 11/07/1911/07/2023 CBC/C OMPLE TE BLD COUNT W/DIF F hematocrit 44.0 % 35.7-4 5.7 Not Available [facility] (Lab) [address] [place], [address], 11/07/2023 11:13:19 11/07/1911/07/2023 CBC/C OMPLE TE BLD COUNT W/DIF F mean red cell volume 84.5 fL 82.0-9 9.0 Not Available [facility] (Lab) [address] [place], [address], 11/07/2023 11:13:19 11/07/1911/07/2023 CBC/C OMPLE TE BLD COUNT W/DIF F mean red cell hemoglobin 26.3 pg 27.0-3 3.0 low Not Available [facility] (Lab) [address] [place], [address], 11/07/2023 11:13:19 11/07/1911/07/2023 CBC/C OMPLE TE BLD COUNT W/DIF F mean RBC HGB concentratio n 31.1 g/dL 31.0-3 6.0 Not Available [facility] (Lab) [address] [place], [address], 11/07/2023 11:13:19 11/07/1911/07/2023 CBC/C OMPLE TE BLD COUNT W/DIF F red cell distribution width 14.7 % 11.8-1 5.5 Not Available [facility] (Lab) [address] [place], [address], 11/07/2023 11:13:19 11/07/1911/07/2023 CBC/C OMPLE TE BLD COUNT W/DIF F platelets 342 x10'3 /uL 150-40 0 Not Available [facility] (Lab) [address] [place], [address], 11/07/2023 11:13:19 11/07/1911/07/2023 CBC/C OMPLE TE BLD COUNT W/DIF F mean platelet volume 9.2 fL 9.0-12 .4 Not Available [facility] (Lab) [address] [place], [address], 11/07/2023 11:13:19 11/07/1911/07/2023 CBC/C OMPLE TE BLD COUNT W/DIF F neutrophils 58.0 % 39.0-7 2.0 Not Available [facility] (Lab) [address] [place], [address], 11/07/2023 11:13:19 11/07/1911/07/2023 CBC/C OMPLE TE BLD COUNT W/DIF F lymphocytes 31.6 % 16.0-4 7.0 Not Available [facility] (Lab) [address] [place], [address], 11/07/2023 11:13:19 11/07/1911/07/2023 CBC/C OMPLE TE BLD COUNT W/DIF F monocytes 6.8 % 5.0-12 .0 Not Available [facility] (Lab) [address] [place], [address], 11/07/2023 11:13:11/07/1911/07/2023 CBC/C OMPLE TE BLD COUNT W/DIF F eosinophils 2.1 % 1.0-7. 0 Not Available [facility] (Lab) [address] [place], [address], 11/07/2023 11:13:11/07/19 24 11/07/2023 CBC/C OMPLE TE BLD COUNT W/DIF F basophils 0.9 % 0.0-2. 0 Not Available [facility] (Lab) [address] [place], [address], 11/07/2023 11:13:11/07/1911/07/2023 CBC/C OMPLE TE BLD COUNT W/DIF F immature granulocytes 0.6 % 0.00-0 .50 high Not Available [facility] (Lab) [address] [place], [address], 11/07/2023 11:13:11/07/19 24 11/07/2023 CBC/C OMPLE TE BLD COUNT W/DIF F neutrophils, absolute count 6.53 x10'3 /uL 1.5-8. 0 Not Available [facility] (Lab) [address] [place], [address], 11/07/2023 11:13:11/07/19 24 11/07/2023 CBC/C OMPLE TE BLD COUNT W/DIF F lymphocytes, absolute count 3.55 x10'3 /uL 1.07-3 .43 high Not Available [facility] (Lab) [address] [place], [address], 11/07/2023 11:13:11/07/19 24 11/07/2023 CBC/C OMPLE TE BLD COUNT W/DIF F monocytes, absolute count 0.76 x10'3 /uL 0.29-0 .99 Not Available [facility] (Lab) [address] [place], [address], 11/07/2023 11:13:19 11/07/19 24 11/07/2023 CBC/C OMPLE TE BLD COUNT W/DIF F eosinophils, absolute count 0.24 x10'3 /uL 0.02-0 .53 Not Available [facility] (Lab) [address] [place], [address], 11/07/2023 11:13:19 11/07/19 24 11/07/2023 CBC/C OMPLE TE BLD COUNT W/DIF F basophils, absolute count 0.10 x10'3 /uL 0.01-0 .08 high Not Available [facility] (Lab) [address] [place], [address], 11/07/2023 11:13:19 11/07/19 24 11/07/2023 CBC/C OMPLE TE BLD COUNT W/DIF F immature granulocytes ,absolute 0.07 x10'3 /uL 0.00-0 .05 high Not Available [facility] (Lab) [address] [place], [address], 11/07/2023 11:13:19 11/07/19 24 11/07/2023 CBC/C OMPLE TE BLD COUNT W/DIF F nucleated red blood cells 0.0 % -0 Not Available [facility] (Lab) [address] [place], [address], 11/07/2023 11:13:19 11/07/19 24 11/07/2023 CBC/C OMPLE TE BLD COUNT W/DIF F NRBC# 0.00 x10'3 /uL Not Available [facility] (Lab) [address] [place], [address], 11/07/2023 11:13:19 11/07/19 24 11/07/2023 LIPID PANEL cholesterol 183 mg/dL 140-19 9 [facility] CHRI[facility]IANO NSUS RECOM MENDA TION FOR OJSH STERO L: ADULT CHILD LOW RISK: <200 <170 BORDE RLINE : <200- 239 ----- HIGH RISK: >240 >200 Not Available [facility] (Lab) [address] [place], [address], 11/07/2023 11:40:45 11/07/19 24 11/07/2023 LIPID PANEL triglyceride s 182 mg/dL 0-150 high NIH CHRISTIANO NSUS REPOR T RECOM MENDA TION FOR TRIGL YCERI NAKUL: ADULT CHILD LOW RISK: <150 ----- BODER LINE: 150-1 99 ----- HIGH RISK: >200 ----- Not Available [facility] (Lab) [address] [place], [address], 11/07/2023 11:40:45 11/07/19 24 11/07/2023 LIPID PANEL HDL cholesterol 57 mg/dL 40- Not Available [facility] (Lab) [address] [place], [address], 11/07/2023 11:40:45 11/07/19 24 11/07/2023 LIPID PANEL LDL cholesterol, calculated 90 mg/dL 0-130 [facility] CHRISTIANO NSUS REPOR T RECOM MENDA TIONS FOR LDL: ADULT CHILD LOW RISK <130 <110 (OPTI MAL LDL) <100 ----- BORDE RLINE : 130-1 59 ----- HIGH RISK: >160 >130 A TRIGL YCERI DE RESUL T >400 INVAL IDATE S THE CALCU LATIO N FOR LDL FRACT IONAT ION - THE LDL RESUL T WILL NOT BE REPOR JETHRO. Not Available [facility] (Lab) [address] [place], [address], 11/07/2023 11:40:45 11/07/19 24 11/07/2023 COMPR EHENS DEEP METAB OLIC PANEL sodium 135 mmol/ L 137-14 5 low Not Available [facility] (Lab) [address] [place], [address], 11/07/2023 11:40:51 11/07/19 24 11/07/2023 COMPR EHENS DEEP METAB OLIC PANEL potassium 4.4 mmol/ L 3.5-5. 1 Not Available [facility] (Lab) [address] [place], [address], 11/07/2023 11:40:51 11/07/19 24 11/07/2023 COMPR EHENS DEEP METAB OLIC PANEL chloride 103 mmol/ L 98-107 Not Available [facility] (Lab) [address] [place], [address], 11/07/2023 11:40:51 11/07/19 24 11/07/2023 COMPR EHENS DEEP METAB OLIC PANEL carbon dioxide 29 mmol/ L 22-30 Not Available [facility] (Lab) [address] [place], [address], 11/07/2023 11:40:51 11/07/19 24 11/07/2023 COMPR EHENS DEEP METAB OLIC PANEL anion gap 7.4 mmol/ L 14-22 low Not Available [facility] (Lab) [address] [place], [address], 11/07/2023 11:40:51 11/07/19 24 11/07/2023 COMPR EHENS DEEP METAB OLIC PANEL glucose 153 mg/dL 70-99 high Not Available [facility] (Lab) [address] [place], [address], 11/07/2023 11:40:51 11/07/19 24 11/07/2023 COMPR EHENS DEEP METAB OLIC PANEL BUN 16 mg/dL 8-19 Not Available [facility] (Lab) [address] [place], [address], 11/07/2023 11:40:51 11/07/19 24 11/07/2023 COMPR EHENS DEEP METAB OLIC PANEL creatinine 1.05 mg/dL 0.66-1 .25 Not Available [facility] (Lab) [address] [place], [address], 11/07/2023 11:40:51 11/07/1911/07/2023 COMPR EHENS DEEP METAB OLIC PANEL GFR 52 Refer ence Range : [place] GFR Healt hy Adult : >60 mL/mi n/1.7 3 m2 Chron ic Kidne y Disea se: 15-60 mL/mi n/1.7 3 m2 Kidne y Failu re: <15/m L/min /1.73 m2 www.n iddk. nih.g ov The MDRD study equat ion has not been valid ated in child junior <18 years of age; pregn ant women ; the elder ly >85 years of age; or in some racia l or ethni c subgr oups, such as Ramirez nics. Outsi de the valid ated sona eters , estim ated GFR is less accur ate, requi ring clini rita judgm ent on a case- by-ca se basis . Clini rita inter preta tion for other races and ages must be made by the clini zully. The MDRD study equat ion has not been valid ated for the evalu ation of serum creat inine relat ed to nutri yuval l statu s or medic ation usage . For perso ns <18 years of age, a pedia tric GFR calcu lator is avail able on the [facility] websi te: https :[email or web address] prince.kirill rg/pr ofess ional s/kdo qi/gf r_cal culat or Not Available [facility] (Lab) [address] [place], [address], 11/07/2023 11:40:51 11/07/19 24 11/07/2023 COMPR EHENS DEEP METAB OLIC PANEL alkaline phosphatase 102 U/L 38-126 Not Available [facility] (Lab) [address] [place], [address], 11/07/2023 11:40:51 11/07/19 24 11/07/2023 COMPR EHENS DEEP METAB OLIC PANEL alanine aminotransfe rase 32 U/L 0-35 Not Available [facility] (Lab) [address] [place], [address], 11/07/2023 11:40:51 11/07/19 24 11/07/2023 COMPR EHENS DEEP METAB OLIC PANEL aspartate aminotransfe rase 27 U/L 15-37 Not Available [facility] (Lab) [address] [place], [address], 11/07/2023 11:40:51 11/07/19 24 11/07/2023 COMPR EHENS DEEP METAB OLIC PANEL bilirubin, total 0.70 mg/dL 0.20-1 .30 Not Available [facility] (Lab) [address] [place], [address], 11/07/2023 11:40:51 11/07/19 24 11/07/2023 COMPR EHENS DEEP METAB OLIC PANEL calcium 9.0 mg/dL 8.4-10 .2 Not Available [facility] (Lab) [address] [place], [address], 11/07/2023 11:40:51 11/07/19 24 11/07/2023 COMPR EHENS DEEP METAB OLIC PANEL total protein 8.0 g/dL 6.3-8. 2 Not Available [facility] (Lab) [address] [place], [address], 11/07/2023 11:40:51 11/07/19 24 11/07/2023 COMPR EHENS DEEP METAB OLIC PANEL albumin 4.3 g/dL 3.0-4. 4 Not Available [facility] (Lab) [address] [place], [address], 11/07/2023 11:40:51 11/07/19 24 11/07/2023 COMPR EHENS DEEP METAB OLIC PANEL globulin 3.7 g/dL 2.6-4. 2 Not Available [facility] (Lab) [address] [place], [address], 11/07/2023 11:40:51 11/07/19 24 11/07/2023 COMPR EHENS DEEP METAB OLIC PANEL A/G ratio 1.2 ratio 1.0-2. 0 Not Available [facility] (Lab) [address] [place], [address], 11/07/2023 11:40:51 11/07/19 24 11/07/2023 HEMOG LOBIN A1C HA1C 6.7 % 4.0-6. 0 high Diabe sara Scree [place] Crite mel: <5.7% Consi stent with absen ce of diabe sara 5.7-6 .4% Consi stent with incre ased risk for diabe sara (pred iabet es) >OR=6 .5% Consi stent with diabe sara REFER ENCE: Diabe sara Care 2016, 39(Ro ppl.1 ):s13 -s22 Not Available [facility] (Lab) [address] [place], [address], 11/07/2023 15:21:32 09/23/19 21 09/22/2020 bone densi ty [facility] [address] [facility] [place] [address] Patien t Name: PETER SURJIT Decker Access ion #: [id number] Sex: F : 1955 7 Locati on: RAD Attend ing Physic giancarlo: SHAN CORTES Orderi ng Physic giancarlo: SHAN CORTES Exam Date: 021 9:44 AM Exam Name: XR DEXA-H IPS PELVIS SPINE Admitt ing Diagno sis(es ): RADIOL OGY REPORT - FINAL EXAM: XR DEXA-H IPS PELVIS SPINE HISTOR Y: MENOPA USAL COMPAR JOSHUA: None. TECHNI QUE: TECHNI QUE: Dual energy x-ray of absorp tion examin ation of the bilate ral hips and lumbar spine in AP projec tion was perfor med. FINDIN GS: Lumbar Spine (L1-L4 ): The mean bone minera l densit y is 0.980 g/cm2 hydrox yapati te, correl ating with a T-scor e of -1.7. Bilate ral hips: The mean bone minera l densit y is 0.908 g/cm2 calciu m hydrox yapati te, correl ating with a T-scor e of -0.8. Page 1 of 2 [facility] Name[facility] SURJIT BOBBY Access ion #: [id number] Sex: F : 1955 6 Exam Date: 9:44 AM Exam Name: XR DEXA-H IPS PELVIS SPINE Admitt ing Diagno sis(es ): IMPRES ASHLEY: 1. The patien t's lumbar spine T-scor e is consis tent with osteop enia. 2. The patien t's bilate ral hip T-scor e is consis tent with normal bone minera l densit y. Accord ing to the World Health Organi zation , T-scor e values greate r than -1.0 are normal , values betwee n -1.0 and -2.5 are catego rized as osteop enia, T-scor e of -2.5 or more are catego rized as osteop orosis . Create d and electr onical ly signed by: Dario Mark ch, DO Signed Date: 10:01 AM (CT) Dictat ed by: Dario Mark ch, DO DD: 10:01 AM (CT) DT: 10:01 AM (CT) Page 2 of 2 [id number] [facility] (Imaging) [address] [place], [address], 04/28/2022 09:21:45 07/07/19 22 07/06/2021 XR, knee, 3 view [facility] [address] [place] [address] Britt langley Name: SURJIT BOBBY Access ion #: [id number] Sex: F : 1955 2 Locati on: RAD Attend ing Physic giancarlo: SHAN CORTES Orderi ng Physic giancarlo: SHAN CORTES Exam Date: 07/07/19 10:33 AM Exam Name: XR KNEE RT 3V Admitt ing Diagno sis(es ): RADIOL OGY REPORT - FINAL EXAM: XR KNEE RT 3V HISTOR Y: PAIN IN RT LEG 65-yea r-old female with right knee pain, no known injury . COMPAR JOSHUA: None availa ble. TECHNI QUE: 3 views of the right knee were perfor med. FINDIN GS: No acute fractu re is identi fied about the right knee. There is mild joint space narrow ing of the medial compar tment. There are tiny patell ofemor al margin al osteop hytes. There is a small caio ceps tendon insert ion enthes ophyte on the superi or pole of the patell a. Probab le modera te joint effusi on accumu lating in the suprap atella r pouch. Page 1 of 2 [facility] Britt langley Name: SURJIT BOBBY Access ion #: [id number] Sex: F : 1955 2 Exam Date: 07/07/19 10:33 AM Exam Name: XR KNEE RT 3V Admitt ing Diagno sis(es ): IMPRES ASHLEY: 1. No fractu re of the right knee. 2. Mild degene rative change s of the medial and patell ofemor al compar tments . 3. Probab le modera te joint effusi on. If commander internal affairs al derang ement is suspec elidia morelos er follow -up noncon trast MRI of the right knee for evalua tion of the ligame nts and menisc i. Create d and electr onical ly signed by: Ham cheatham MD Signed Date: 07/07/19 1:13 PM (CT) Dictat ed by: Ham cheatham MD (CT) (CT) Page 2 of 2 [id number] [facility] (Imaging) [address] [facility] [place], [address], 04/28/2022 09:21:45 09/12/19 22 09/11/2021 MAMMO , scree dakotah, digit al, bilat eral No observ ation record ed. [id number] [facility], [place], [address], 04/28/2022 09:21:45 11/17/19 23 11/16/2022 MAMMO , scree [place]akot[place], digit al, bilat eral No observ ation record ed. [address] [facility], [place], [address], 03/05/2023 16:10:26 11/19/19 23 11/18/2022 MAMMO , diagn ostic , unila teral No observ ation record ed. [address] [address], [place], [address], 03/05/2023 16:10:26 11/07/19 24 11/07/2023 XR, chest , 2 view [facility] [address] [place] [address] Patien t Name: SURJIT BOBBY Access ion #: [id number] Sex: F : 1955 8 Dictat ed By: Cait Guajardo Attend ing Physic giancarlo: SHAN CORTES Orderi Physic giancarlo: SHAN CORTES Exam Date: 2023 09:44 AM Exam Name: XR CHEST 2V Admitt ing Diagno sis(es ): CHEST RADIOG RAPH Indica tion:c ough Techni que: Fronta l and latera l view of the chest was obtain ed Compar joshua: None FINDIN GS: Lines and Tubes: None Lungs: Right basila r subseg mental atelec tasis Pleura : No effusi on. No pneumo thorax . Cardio medias tinal contou rs: Unrema rkable Bones: Unrema rkable IMPRES ASHLEY: Right basila r subseg mental atelec tasis Electr onical ly Signed by: Cait Guajardo at 2023 10:13: 46 AM Page 1 [email or web address] [facility] (Imaging) [address] [place], [address], 11/14/2023 14:51:46 Result Notes Documentation Provider Name and Address Organization Details Recorded Time Xr, Knee, 3 View : [facility] [address] [place] [address] Patient Name: LAUREN WU Sex: F : 1955 Location: [facility] Attending Physician: SADAI CORTES Ordering Physician: SADIA CORTES Exam Date: 07/06/2021 10:33 AM Exam Name: XR KNEE RT 3V Admitting Diagnosis(es): RADIOLOGY REPORT - FINAL EXAM: XR KNEE RT 3V HISTORY: PAIN IN RT LEG 65-year-old female with right knee pain, no known injury. COMPARISON: None available. TECHNIQUE: 3 views of the right knee were performed. FINDINGS: No acute fracture is identified about the right knee. There is mild joint space narrowing of the medial compartment. There are tiny patellofemoral marginal osteophytes. There is a small quadriceps tendon insertion enthesophyte on the superior pole of the patella. Probable moderate joint effusion accumulating in the suprapatellar pouch. Page 1 of 2 [facility] Patient Name: LAUREN WU Sex: F : 1955 Exam Date: 07/06/2021 10:33 AM Exam Name: XR KNEE RT 3V Admitting Diagnosis(es): IMPRESSION: 1. No fracture of the right knee. 2. Mild degenerative changes of the medial and patellofemoral compartments. 3. Probable moderate joint effusion. If internal derangement is suspected, consider follow-up noncontrast MRI of the right knee for evaluation of the ligaments and menisci. Created and electronically signed by: Ham Horta MD Signed Date: 07/06/2021 1:13 PM (CT) Dictated by: Ham Horta MD (CT) (CT) Page 2 of 2 Not Available [facility] 04/28/2022 09:21:45 Xr, Chest, 2 View : [place] [address] Patient Name: LAUREN WU Sex: F : 1955 Dictated By: Andriy Guajardo Attending Physician: SADIA CORTES Ordering Physician: SADIA CORTES Exam Date: 11/07/2023 09:44 AM Exam Name: XR CHEST 2V Admitting Diagnosis(es): CHEST RADIOGRAPH Indication:cough Technique: Frontal and lateral view of the chest was obtained Comparison: None FINDINGS: Lines and Tubes: None Lungs: Right basilar subsegmental atelectasis Pleura: No effusion. No pneumothorax. Cardiomediastinal contours: Unremarkable Bones: Unremarkable IMPRESSION: Right basilar subsegmental atelectasis Page 1 MALI Lopez [place] [facility] 11/14/2023 14:51:46 Problems Name Problem SNOMED Code Status Onset Date Resolution Date Notes Provider Name and Address Organization Details Recorded Time Disorder of lower limb 062382101 Active Not Available [facility] 4 01:53:12 Acute sinusitis 35906947 Active Not Available [facility] 4 01:53:12 Urinary incontinence 674434835 Active Not Available [facility] 4 01:53:12 Knee pain Active Not Available [facility] 4 01:53:12 History of fall 712121507 Active Not Available [facility] 4 01:53:12 Derangement of knee 10895980 Active Not Available [facility] 4 01:53:13 Pain in right lower limb 773593668 Active 2021 Not Available [facility] 4 01:53:12 Vitamin D deficiency 85230001 Active 2021 Not Available [facility] 4 01:53:12 Colorectal cancer detected by DNA-based stool screening 652728283 Active 2021 Not Available [facility] 4 01:53:13 Hyperglycemia 44639051 Active 2021 Not Available [facility] 4 01:53:13 Fatigue 48315595 Active 2021 Not Available [facility] 4 01:53:13 Type 2 diabetes mellitus without complication 789307791 Active 2022 Not Available [facility] 4 01:53:12 Cough 35819299 Active 2022 Not Available [facility] 4 01:53:12 Essential hypertension 25405688 Active 2022 Not Available [facility] 4 01:53:13 Hyperlipidemi a 46786208 Active 2022 Not Available [facility] 4 01:53:13 Problem Notes None recorded. Procedures Surgical History Date Name Laterality Status Provider Name and Address Organization Details Recorded Time completed Not Available [facility] 0 04/28/2022 09:13:36 Bladder completed Not Available [facility] 02/2022 09:13:36 Unlisted px femur/knee completed Not Available [facility] 04/28/2022 09:13:36 Hernia Repair completed Not Available [facility] 04/28/2022 09:13:36 [facility]olecystectomy completed Not Available [facility] 04/28/2022 09:13:36 resection of diverticulum completed Not Available [facility] 04/28/2022 09:13:36 Imaging Results None recorded. Procedure Notes None recorded. Medical Equipment None Reported. Allergies No known drug allergies Medications Name Sig Start Date Stop Date Status Note LastModified by Organization Details LastModified Time metformin 500 mg tablet TAKE 1 TABLET BY MOUTH EVERY DAY active Not Available Not Available No t Available atorvastati n 10 mg tablet TAKE 1 TABLET BY MOUTH EVERY DAY active Not Available Not Available No t Available oxybutynin chloride ER 10 mg tablet,exte nded release 24 hr TAKE ONE TABLET BY MOUTH ONCE DAILY active Not Available Not Available No t Available azithromyci n 250 mg tablet TAKE 2 TABLETS BY MOUTH TODAY, THEN TAKE 1 TABLET DAILY FOR 4 DAYS 11/15 completed Not Available Not Available Not Available benzonatate 200 mg capsule Take 1 capsule 3 times a day by oral route. 2022 active Not Available Not Available Not Avai lable prednisone 20 mg tablet TAKE 2 TABLETS ORAL ROUTE ONCE DAILY FOR 5 DAYS TAKE WITH FOOD 11/15 completed Not Available Not Available Not Available penicillin V potassium 500 mg tablet 07/27 completed Not Available Not Available Not Available benzonatate 100 mg capsule TAKE 1 CAPSULE ORAL ROUTE EVERY 8 HOURS NEEDED MAY TAKE 1-2 TABS DIRECTED 11/15 completed Not Available Not Available Not Available polymyxin B sulfate 10,000 unit-trimet hoprim 1 mg/mL eye drops 07/03 completed Not Available Not Available Not Available bisacodyl 5 mg tablet,glenn yed release TAKE 6 TABLETS BY MOUTH AT 8AM ON 11/10 completed Not Available Not Available Not Available ergocalcife rol (vitamin D2) 1,250 mcg (50,000 unit) capsule TAKE 1 CAPSULE BY MOUTH EVERY 2 WEEKS 2022 active Not Available Not Available Not Avai lable doxycycline hyclate 100 mg tablet TAKE 1 TABLET ORAL ROUTE 2 TIMES PER DAY FOR 10 DAYS 11/15 completed Not Available Not Available Not Available Zostavax (PF) 19,400 unit/0.65 mL subcutaneou s suspension 08/29 completed Not Available Not Available Not Available GaviLyte-G 236 gram-22.74 gram-6.74 gram-5.86 gram oral solution 11/16 completed Not Available Not Available Not Available Prolia 60 mg/mL subcutaneou s syringe 1ml every 6mths. 11/16 completed Not Available Not Available Not Available Fluzone Quad 0495-5737 60 mcg (15 mcg x 4)/0.5 mL IM suspension 08/29 completed Not Available Not Available Not Available Vitals Date Recorded Body height Body mass index (BMI) Body weight Body temperature Heart rate Systolic And Diastolic Provider Name and Address Organization Details Last Updated DateTime 3 162.56 cm 41.4 kg/m2 447803. 76 g 97.5 [degF] 101 /min 146/80 mm[Hg] SHEKHAR Ramos [facility] 3 10:09:59 Date Recorded Body mass index (BMI) Body height Heart rate Body temperature Body weight Systolic And Diastolic Provider Name and Address Organization Details Last Updated DateTime 2 40.9 kg/m2 162.56 cm 82 /min 96.8 [degF] 150628. 98 g 124/80 mm[Hg] Not Available [facility] 3 09:15:30 Date Recorded Body mass index (BMI) Body height Heart rate Body temperature Body weight Systolic And Diastolic Provider Name and Address Organization Details Last Updated DateTime 1 41.2 kg/m2 162.56 cm 78 /min 97.3 [degF] 866173. 17 g 124/80 mm[Hg] Not Available [facility] 3 09:15:30 Date Recorded Body height Body mass index (BMI) Body weight Body temperature Heart rate Systolic And Diastolic Provider Name and Address Organization Details Last Updated DateTime 3 162.56 cm 37.6 kg/m2 11481.7 3 g 97.8 [degF] 86 /min 136/88 mm[Hg] SHEKHAR Ramos [facility] 3 10:09:13 Date Recorded Body mass index (BMI) Body height Heart rate Body temperature Body weight Systolic And Diastolic Provider Name and Address Organization Details Last Updated DateTime 2 40.7 kg/m2 162.56 cm 89 /min 97.8 [degF] 213020. 39 g 122/82 mm[Hg] Not Available [facility] 3 09:15:30 Social History Question Answer Notes LastModified by Organization Details LastModified Time Tobacco Smoking Status Never Smoker Not Available [facility] 04/28/2022 09:13:20 Do You Have An Advance Directive? No MIGRATION.0301 [id number] Information not available 04/28/2022 Do You Wear A Helmet When Biking? No MIGRATION.0301 194166 Information not available 04/28/2022 Are You Blind Or Do You Have Difficulty Seeing? Yes Wears Glasses MIGRATION.0301 382584 Information not available 04/28/2022 What Is Your Level Of Caffeine Consumption? Heavy MIGRATION.0301 209148 Information not available 04/28/2022 How Much Tobacco Do You Chew? None MIGRATION.0301 727233 Information not available 04/28/2022 In The 14 Days Before Symptom Onset, Have You Had Close Contact With A Laboratory-confi rmed COVID-19 While That Case Was Ill? No MIGRATION.0301 359979 Information not available 04/28/2022 In The 14 Days Before Symptom Onset, Have You Had Close Contact With A Person Who Is Under Investigation For COVID-19 While That Person Was Ill? No MIGRATION.0301 986423 Information not available 04/28/2022 Are You Deaf Or Do You Have Serious Difficulty Hearing? No MIGRATION.0301 640974 Information not available 04/28/2022 What Type Of Diet Are You Following? REGULAR MIGRATION.0301 307136 Information not available 04/28/2022 Which Illicit Or Recreational Drugs Have You Used? None MIGRATION.0301 174589 Information not available 04/28/2022 Have There Been Any Changes To Your Family Or Social Situation? No MIGRATION.0301 012209 Information not available 04/28/2022 Are There Any Guns Present In Your Home? Yes MIGRATION.0301 179519 Information not available 04/28/2022 Do You Use Insect Repellent Routinely? No MIGRATION.0301 212470 Information not available 04/28/2022 Where Do You Live? [place]House MIGRATION.0301 145957 Information not available 04/28/2022 Do You Have A Medical Power Of Staff Psychologist? No MIGRATION.0301 003467 Information not available 04/28/2022 What Was The Date Of Your Most Recent Tobacco Screening? 11/15/2022 [email or web address] Information not available 11/15/2022 Do You Have Any Pets? Yes MIGRATION.0301 283164 Information not available 04/28/2022 What Is Your Relationship Status? MIGRATION.0301 530295 Information not available 04/28/2022 Do You Use Your Seat Belt Or Car Seat Routinely? Yes MIGRATION.0301 555075 Information not available 04/28/2022 Do You Have Smoke And Carbon Monoxide Detectors In Your Home? Yes MIGRATION.0301 646389 Information not available 04/28/2022 Are You Passively Exposed To Smoke? No MIGRATION.0301 407063 Information not available 04/28/2022 Are There Any Smokers In Your House? No MIGRATION.0301 125194 Information not available 04/28/2022 How Much Tobacco Do You Smoke? No MIGRATION.0301 330750 Information not available 04/28/2022 Do You Use Sunscreen Routinely? Yes MIGRATION.0301 964218 Information not available 04/28/2022 Has Tobacco Cessation Counseling Been Provided? No MIGRATION.0301 706965 Information not available 04/28/2022 How Many Years Have You Smoked Tobacco? 0 MIGRATION.0301 785063 Information not available 04/28/2022 Have You Recently Traveled Abroad? No MIGRATION.0301 400963 Information not available 04/28/2022 Do You Have Difficulty Walking Or Climbing Stairs? No MIGRATION.0301 731661 Information not available 04/28/2022 Do You Have Any Dietary Restrictions? No MIGRATION.0301 723787 Information not available 04/28/2022 Sex: Unknown Functional Status Question Answer Note LastModified by Organizat ion Details LastModified Time Do you use any illicit or recreational drugs? No MIGRATION.592556 5269 Information not available 04/28/2022 What is your level of alcohol consumption? None MIGRATION.997995 1492 Information not available 04/28/2022 Do you or have you ever used smokeless tobacco? Never used smokeless tobacco MIGRATION.883968 3605 Information not available 04/28/2022 Do you have transportation difficulties? No MIGRATION.116891 6412 Information not available 04/28/2022 Are you able to walk independently without assistance or assistive devices? YESWOREST MIGRATION.638864 1482 Information not available 04/28/2022 Do you have difficulty doing errands alone? No MIGRATION.518708 0899 Information not available 04/28/2022 Are you able to care for yourself independently? Yes MIGRATION.387799 0608 Information not available 04/28/2022 What is your occupation? retired MIGRATION.316350 9941 Information not available 04/28/2022 Do you have difficulty dressing, bathing, grooming, or toileting? No MIGRATION.363922 9813 Information not available 04/28/2022 Do you or have you ever used e-cigarettes or vape? Never used electronic cigarettes MIGRATION.481812 0321 Information not available 04/28/2022 What is your exercise level? Occasional MIGRATION.249290 5239 Information not available 04/28/2022 Mental Status Question Answer Note LastModified by Organizat ion Details LastModified Time Do you feel stressed (tense, restless, nervous, or anxious, or unable to sleep at night)? [id number] MIGRATION.51608659 26 Information not available 04/28/2022 Do you have difficulty concentrating, remembering or making decisions? No MIGRATION.23414642 26 Information not available 04/28/2022 Family History Relationship Description Onset Age of this Age Resolved Age Notes LastModified by Organization Details LastModified Time Mother Malignant neoplasm of uterus with METS deceas ed MIGRATION.030 1049102 Not available 04/28/2022 09:13:39 Mother Ulcer MIGRATION.375 [id number] Not available 04/28/2022 09:13:39 Father Leukemia deceas ed MIGRATION.188 7403394 Not available 04/28/2022 09:13:39 Father Rheumatoid arthritis MIGRATION.318 7938084 Not available 04/28/2022 09:13:39 Father Osteoarthrit is MIGRATION.896 2396384 Not available 04/28/2022 09:13:39 Father Kidney stone MIGRATION.0 30 [id number] Not available 04/28/2022 09:13:39 Unspecified Relation Family history of malignant neoplasm MIGRATION.041 [id number] Not available 04/28/2022 09:13:39 Unspecified Relation Family history of blood coagulation disorder MIGRATION.730 [id number] Not available 04/28/2022 09:13:39 Medical History Condition Response NERVE DISEASE N BLINDNESS N RHEUMATIC FEVER N KIDNEY STONES N BLADDER PROBLEMS N MRSA N OTHER # 1 N POLIO N LUNG DISEASE/DISORDER N RADIATION / CHEMOTHERAPY N COPD N Other # 2 N BLOOD DISEASES N EAR OR HEARING PROBLEMS N MUMPS N BOWEL PROBLEMS N DEPRESSION (INCLUDING POST ) N STROKE/TIA N ULCERS N BENIGN PROSTATIC HYPERPLASIA N MEASLES N MYOCARDIAL INFARCTION N OBESITY N GERD/NAUSEA N ANEURYSM N URINARY/BLADDER/KIDNEY PROBLEMS N CORONARY ARTERY DISEASE (CAD) N ADDICTION CONCERNS N ENDOMETRIOSIS N Impotence N USE OF BLOOD THINNERS N SKIN PROBLEMS N GASTROINTESTINAL DISORDER N PERIPHERAL VASCULAR DISEASE N MUSCLE,JOINT OR BONE PROBLEMS N GASTROINTESTINAL BLEEDING N BLOOD CLOTS N ASTHMA N CATARACTS N ERECTILE DYSFUNCTION N VARICOSITIES N GI PROBLEMS N Low Testosterone N INFERTILITY N AIDS/HIV N CHEMOTHERAPY / RADIATION N LIVER DISEASE N MALE HYPOGONADISM N HYPERTENSION N Deficiency N TOURETTE'S N ANXIETY DISORDER N BLOOD TRANSFUSION N ANEMIA/BLOOD DISORDER N CHRONIC EAR INFECTIONS N BRONCHITIS N TUBERCULOSIS N GLAUCOMA N FOOT PROBLEM N DIVERTICULITIS Y SLEEP APNEA N CHICKENPOX N INFECTIOUS DISEASE N HEART ARRHYTHMIA N PROSTATE N INSOMNIA N HIGH CHOLESTEROL / HYPERLIPIDEMIA N HYPERTHYROIDISM N EYE PROBLEMS N EDEMA N CHRONIC PAIN SYNDROME N HYPOTHYROIDISM N CAROTID BLOCKAGE N CONSTIPATION N BACK / NECK PROBLEMS N HAVE YOU BEEN HOSPITALIZED OR SEEN IN [facility] IN THE PAST YEAR ? N ATHEROSCLEROSIS N BREAST PROBLEMS N DIALYSIS N ECZEMA N OSTEOPOROSIS N ARTHRITIS N APPENDICITIS N DIABETES, TYPE N BAD TEETH N ENT N HEARTBURN / REFLUX N AUTISM SPECTRUM DISORDER (ASD) N HEPATITIS / LIVER DISEASE N GOUT N SLEEP DISORDER N ALZHEIMER'S DISEASE N Brain Problems N HERPES N DEMENTIA N HEADACHES/MIGRAINES N SEIZURES/EPILEPSY N VASCULAR DISEASE N PACEMAKER N Blood Disorder N DIZZINESS N HEART DISEASE/HEART PROBLEMS N KIDNEY DISEASE N MULTIPLE SCLEROSIS N CARDIAC ARRHYTHMIA N CANCER: SPECIFY N ATRIAL FIBRILLATION N Gall Stones N PULMONARY EMBOLISM N AUTOIMMUNE DISEASE N Gynecological HistoryNo gynecological history recorded. Obstetrics History GPAL:G 0 P 0 0 0 0 Immunizations Vaccine Type Date Status Note Provider Nam e and Address Organization Details Recorded Time SARS-COV-2 (COVID-19) vaccine, UNSPECIFIED 3 completed Not Available [facility] 03/31/2023 01:53:13 influenza, unspecified formulation 3 completed Not Available [facility] 03/31/2023 01:53:13 COVID-19, mRNA, LNP-S, PF, 30 mcg/0.3 mL dose 1 completed Not Available [facility] 03/31/2023 01:53:13 COVID-19, mRNA, LNP-S, PF, 30 mcg/0.3 mL dose 1 completed Not Available [facility] 03/31/2023 01:53:13 COVID-19, mRNA, LNP-S, PF, 30 mcg/0.3 mL dose 2 completed Not Available [facility] 03/31/2023 01:53:13 zoster, unspecified formulation 7 completed Not Available [facility] 03/31/2023 01:53:13 Past Encounters Encounter ID Performer Location Encounter Start Date Encounter Closed Date Diagnosis/Indication Diagnosis SNOMED-CT Code Diagnosis ICD10 Code Diagnosis IMO Codes Diagnosis Note [id number] Sadia Cortes MD [facility] Internal Med [facility] [address] [facility] [address] [address] 08/29/2020 00:00:00 09/20/2020 11:39:01 [id number] Sadia Cortes MD [facility] Internal Med [facility] [address] [place], [place] [address]., [address] [address] 07/03/2021 00:00:00 07/03/2021 23:26:29 [id number] Sadia Cortes MD [facility] Internal Med [facility] [address] [place], [place] [address]., [address] [address] 11/16/2021 00:00:00 11/17/2021 22:57:27 [id number] Sadia Cortes MD [facility] Internal Med [facility] [address] [place], [place] [address]., [address] [address] 05/10/2022 09:58:05 05/10/2022 10:46:38 Hyperglycemia 41221159 R73.9 Screening for cardiovascular system disease 997111640 Z13.6 Vitamin D deficiency 347 71693 E55.9 [id number] Sadia Cortes MD [facility] Internal Med [facility] [address] [place], [place] [address]., [address] [address] 11/15/2022 10:02:35 11/15/2022 10:42:06 Type 2 diabetes mellitus without complication 813467458 E11.9 Essential hypertension 49524312 I10 Cough 24864686 R05.9 Urinary incontinence 165 795942 R32 Health Concerns Section Related Observation LastModified by Organization Detai ls LastModified Time None Recorded Concern Status LastModified by Organization Details LastModified Time None Recorded Advance Directives Directive N: Payers Insurance Date Sequence Insurance Name Policy Number Policy Carl Covered Member ID Carl Member ID Guarantor Name 07/19/2023 1 [employer] (MEDICARE REPLACEMENT/ ADVANTAGE - PPO) [id number] Lauren Wu [id number] Lauren Ronald Bryce Notes Date Note Type Note Provider Name and Address Organization Details Recorded Time 05/10/2022 text/html Hyperglycemia she needs to get her sugar down last time 6 pointLow vitamin-D needs get back on supplementation Sadia Cortes MD [address], [address], [place], [address], [employer] 05/15/2022 22:16:13 11/15/2022 text/html Hyperglycemia she needs to get her sugar down last time 6 pointLow vitamin-D needs get back on supplementationDry cough for about a week with no fever chills or anything like thatUrinary incontinence doing okay Sadia Cortes MD [address], [place], [address], [employer] 12/12/2022 14:36:19 OBGyn Episode No OBEpisode recorded.
== END 2025-02-13 10:48 | disposition home or self-care (01) ==
LOC: ANHFOHIMG 10:49
PROVIDERS: PCP Internal Medicine; Visit Provider Student in an Organized Health Care Education/Training Program
DX: N63.10 Unspecified lump in the right breast, unspecified quadrant (principal); N63.20 Unspecified lump in the left breast, unspecified quadrant; R92.8 Other abnormal and inconclusive findings on diagnostic imaging of breast
CPT/HCPCS: 77062; 77066; G0279